=== PATIENT | female | born 1945 | race Caucasian/White ===

== ENCOUNTER 2017-02-14 07:04 | Inpatient (IN) | payer MEDICARE, OTHER, MEDICAID ==
[2017-02-14 08:13] LABS: PTT 26.7 SEC (22.9-36.1); Prothrombin Time 13.6 SEC (12.0-14.7)
[2017-02-14 08:27] LABS: ALT (SGPT) 55 U/L (8-55); AST (SGOT) 56 U/L (5-34); Alkaline Phosphatase 283 U/L (40-150); Anion Gap 16 mmol/L (10-20); BUN (Urea Nitrogen) 42 mg/dL (9.8-20.1); Bilirubin, Total 2.4 mg/dL (0.2-1.2); Calc. Creatinine Clearance 0 mL/min (70-130); Calcium 10.1 mg/dL (7.8-10.44); Carbon Dioxide 25 mmol/L (23-31); Chloride 102 mmol/L (98-107); Estimated GFR-MDRD 49; Magnesium 2.4 mg/dL (1.6-2.6); Protein, Total 7.4 g/dL (6.0-8.3)
[2017-02-14 08:30] LABS: #Lymphocytes 0.5 thou/uL (1.20-3.40); #Monocytes 0.4 thou/uL (0.11-0.59); %Basophils 0.2 % (0.0-1.0); %Eosinophils 0.3 % (0.0-10.0); %Monocytes 6.5 % (0.0-10.0); Hematocrit 58.8 % (36.0-47.0); Mean Platelet Volume 9.9 fL (7.4-10.4); Red Blood Cell (RBC) Count 5.96 mill/uL (4.20-5.40)
[2017-02-14 08:31] LABS: Troponin I 0.094 ng/mL (< 0.028)
--- NOTE | 2017-02-14 08:35 | RAD ---
PORTABLE CHEST: Date: 02/14/17 HISTORY: Dyspnea. No comparison available. IMPRESSION: Heart is mildly prominent. Mild elevation right hemidiaphragm. There is evidence of mild bibasilar at electasis and there is also evidence of small bilateral effusions. Mild vascular engorgement. A MediP ort catheter is in place with tip overlying the upper SVC. POS: [facility]
[2017-02-14] MEDS ORDERED: Heparin 1000 UNIT/NS 500ML(OR) 1,000 ML ONE (08:50)
[2017-02-14] MEDS ORDERED: Vancomycin HCl 500 MG VIAL ONE (09:10)
[2017-02-14] MEDS ORDERED: Levofloxacin 500 mg/D5W 100 ml Premix Bag ONE (09:14)
[2017-02-14] MEDS ORDERED: DOBUTamine 500 mg/250 ml 250 ML IVPB SCH (09:15)
[2017-02-14] MEDS ORDERED: Clindamycin/D5W 600 mg/50 ml Premix Bag ONE (09:30)
[2017-02-14] MEDS ORDERED: DOPamine 400 MG/D5W 250 ML 250 ML ONE (09:57)
--- NOTE | 2017-02-14 10:40 | CON ---
DATE OF CONSULTATION: 02/14/2017 REASON FOR CONSULTATION: Complete heart block. Ms. Miguel is a 71-year-old woman. She came to the hospital with weakness and fatigue and lack of energy. She also complained of increasing difficulty breathing and being unable to lay flat, she did not have chest pain or tightness. She has been feeling bad for about 3 days. The patient states that she otherwise has been in fair health. 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 She also has polymyositis for which she receives IgG therapy for this problem. She has otherwise had not had previous cardiac problems. MEDICATIONS AT HOME: Included subcutaneous heparin. Apparently the patient is not on any digoxin or beta blockers. ALLERGIES: None recorded. SOCIAL HISTORY: She has relatively poor physical health. There is no previous cardiac problems. REVIEW OF SYSTEMS: CONSTITUTIONAL: Positive for weakness, fatigue. VISION: No changes. HEARING: No changes. PULMONARY: No cough or wheezing. GASTROINTESTINAL: No nausea, vomiting, diarrhea. SKIN: No rashes. NEUROLOGIC: No unilateral weakness or numbness. PSYCHIATRIC: No unusual depression or anxiety. PHYSICAL EXAMINATION: GENERAL: This is an ill-appearing elderly woman. Her heart rates 29. She is in complete heart bloc k. VITAL SIGNS: Her blood pressure is 130 systolic. HEENT: Eyes; sclerae nonicteric. Mouth; mucous membranes moist. NECK: Supple, no lymphadenopathy. LUNGS: Clear, no wheezing, rales or rhonchi. CARDIAC: Extremely bradycardiac, no murmur, rub or gallop. ABDOMEN: Soft, nontender, no hepatosplenomegaly. EXTREMITIES: Extremities are cool. In fact, cold in her feet and below the knees. There is no club holly, cyanosis or edema. LABORATORY: Potassium is 5.1. EKG sinus rhythm, underlying, but there is complete heart block with ventricular escape rate. There is an incomplete right bundle branch block pattern. Left axis deviation, probably ventricular escape . ASSESSMENT: 1. Complete heart block. 2. History of polymyositis. 3. Weakness and fatigue related to complete heart block. PLAN: 1. Proceed with pacemaker insertion. Discussed risks of bleeding, infection, air in the lung, lead dislodgement. She understands and wishes to proceed. 2. Echocardiogram showed grossly normal left ventricular function, somewhat hyperdynamic the test is still being done at this point.
[2017-02-14] MEDS ORDERED: Ondansetron HCl/PF 4 MG/2 ML Vial ONE (11:53)
[2017-02-14] MEDS ORDERED: CEFAZOLIN/Water 2 GM/20 ML SYRINGE SLOW IVP SCH (12:15)
--- NOTE | 2017-02-14 12:21 | RAD ---
AP VIEW OF CHEST: Date: 02/14/17 INDICATION: Status post pacemaker placement. COMPARISON: Prior exam dated 02/14/17 at 0745 hours. FINDINGS: Left chest wall port is unchanged. There has been interval placement of a new right dual lead pacemak er. No pneumothorax is evident. Cardiomegaly persists. Elevation of right hemidiaphragm is similar. O sseous structures are unchanged. IMPRESSION: New right subclavian chest wall pacemaker without evidence of pneumothorax. POS: [facility]
[2017-02-14] MEDS ORDERED: Mag-Al 1200 mg/1200 mg/30 ML UDCUP PO PRN (12:31)
[2017-02-14] MEDS ORDERED: Eucerin (Mineral Oil/Petrolatum,White) 30 gm Jar TOP PRN (12:31)
[2017-02-14] MEDS ORDERED: Loratadine 10 MG TAB PO PRN (12:31)
[2017-02-14] MEDS ORDERED: Ondansetron ODT 4 MG TAB PO PRN (12:31)
[2017-02-14] MEDS ORDERED: Artificial Tears 18 DROP/0.9 ML EA EYE PRN (12:31)
[2017-02-14] MEDS ORDERED: Acetaminophen 325 MG TAB PO PRN (12:31)
[2017-02-14] MEDS ORDERED: Diabetic Tussin 200 MG/10 ML UDCUP PO PRN (12:31)
[2017-02-14] MEDS ORDERED: Chloraseptic Spray 180 ml Bottle PO PRN (12:31)
[2017-02-14] MEDS ORDERED: Senokot 8.6 MG TAB PO PRN (12:31)
[2017-02-14] MEDS ORDERED: Sodium Chloride 0.65% Nasal 44 ML BOT EA NARE PRN (12:31)
[2017-02-14] MEDS ORDERED: Acetaminophen/Codeine 30-300mg Tablet PO PRN (12:31)
[2017-02-14] MEDS ORDERED: Ondansetron HCl/PF 4 MG/2 ML Vial IVP PRN (12:31)
[2017-02-14] MEDS ORDERED: Loperamide HCl 2 MG CAP PO PRN (12:31)
[2017-02-14] MEDS ORDERED: Milk Of Magnesia 30 ML UDCUP PO PRN (12:31)
[2017-02-14] MEDS ORDERED: hydrALAZINE 20 MG/ML VIAL SLOW IVP PRN (12:31)
[2017-02-14 12:44] VITALS: BMI 24.5
[2017-02-14] MEDS ORDERED: traMADol HCl 50 MG TAB PO PRN (13:31)
--- NOTE | 2017-02-14 14:29 | RAD ---
AP VIEW OF CHEST: Date: 02/14/17 INDICATION: Status post cardiac device placement. COMPARISON: Prior exam dated 02/14/17 at 1117 hours. FINDINGS: The dual lead pacemaker and left subclavian chest port are unchanged. No pneumothorax is evident. No acute osseous abnormality is evident. IMPRESSION: No pneumothorax. POS: [facility]
--- NOTE | 2017-02-14 14:54 | HP ---
DATE OF SERVICE: 02/14/2017 PRIMARY CARE PHYSICIAN: Chase Perez M.D. at [facility]. REASON FOR ADMISSION: Third degree AV block and CHF exacerbation. HISTORY OF PRESENT ILLNESS: A 71-year-old female who has history of inflammatory myopathy. She is g etting IVIG every fourth week. She presented to the emergency room with acute onset of shortness of breath. The patient reports that last night she was having difficulty lying down flat position and s he was feeling extreme shortness of breath. She was also feeling more dizzy and lightheaded and her symptoms were getting worse and that is why she called paramedics. Paramedics did not take her to [facility] because her pulse was very low and that is why they decided to bring her to the emergen cy room at [facility]. This patient normally follows at [facility], but the patient was unstable and that is why they brought her to emergency room. The patient is following Dr. Everett at [facility]. The patie nt has underlying history of hyperdynamic circulation. The patient is not using oxygen therapy at [facility], but when she came to the emergency room, she was only saturating 90%. She was bradycardic and sh e was found with complete heart block. Cardiology evaluated this patient and after that, the patient was immediately taken to cardiac catheterization lab for emergent pacemaker placement. After emerge nt pacemaker placement, the patient was transferred to telemetry floor. The patient does have chronic steroid therapy for her inflammatory myopathy and she is taking IVIG si 1999. The patient also has MediPort. She denies any fever or chills. She denies any chest pain , palpitations, but she does report cough productive of white sputum. She denies any UTI symptoms. She denies any constipation or diarrhea. She was feeling vague chest tightness when she arrived to the emergency room. ALLERGIES: ATROPINE, LOMOTIL, PENICILLIN, STATIN. CURRENT HOME MEDICATIONS: Cholestyramine 1 packet p.o. daily, Lasix 40 mg p.o. b.i.d., Arava 10 mg p .o. daily, Bystolic 5 mg p.o. daily, prednisone 15 mg p.o. daily, Aldactone 25 mg p.o. daily, tramado l 50 mg q.6 hourly p.r.n. REVIEW OF SYSTEMS: The following complete review of systems was negative, unless otherwise mentioned in the HPI or below: Constitutional: Weight loss or gain, ability to conduct usual activities. Sk in: Rash, itching. Eyes: Double vision, pain. ENT/Mouth: Nose bleeding, neck stiffness, pain, te nderness. Cardiovascular: Palpitations, dyspnea on exertion, orthopnea. Respiratory: Shortness of breath, wheezing, cough, hemoptysis, fever or night sweats. Gastrointestinal: Poor appetite, abdom inal pain, heartburn, nausea, vomiting, constipation, or diarrhea. Genitourinary: Urgency, frequenc y, dysuria, nocturia. Musculoskeletal: Pain, swelling. Neurologic/Psychiatric: Anxiety, depressio n. Allergy/Immunologic: Skin rash, bleeding tendency. Please see my HPI for pertinent positives and negatives. All other review of systems reviewed and ne gative except as mentioned in the HPI. 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 PAST SURGICAL HISTORY: Appendicectomy, colonoscopy, cholecystectomy, MediPort placement, superficial lymph node biopsy, total abdominal hysterectomy and bilateral salpingo-oophorectomy. PAST PSYCHIATRIC HISTORY: Reviewed and negative. SOCIAL HISTORY: The patient lives in [facility]. 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 She denies any tobacco, alcohol or illicit drug abuse. FAMILY HISTORY: No strong family history of premature coronary artery disease, stroke or cancer. EMERGENCY ROOM COURSE: The patient was started on initially dobutamine drip. Subsequently that drip was discontinued. PHYSICAL EXAMINATION: VITAL SIGNS: On arrival, blood pressure 121/64, pulse 32, respiratory rate 38, temperature 97.5, sat uration 90% on room air, weight 90.7 kilograms. GENERAL: The patient is currently alert, awake, appears chronically ill, no obvious acute distress. HEENT: Normocephalic, atraumatic. Eyes: Pupils round, reactive to light. Extraocular muscles inta ct. ENT: Oropharynx within normal limits. Moist mucous membranes. No oral lesions. No pharyngeal erythema. No exudate. NECK: Supple. No obvious JVD noted. No carotid bruit. No meningeal signs of irritation. No lymph adenopathy. CARDIOVASCULAR: S1, S2, bradycardic, irregular. Soft systolic murmur noted over precordium. LUNGS: The patient has MediPort in place in left upper chest. Breath sounds are clear, but air entr y reduced both at basally. No obvious rales or end-expiratory wheezing heard. ABDOMEN: Soft, bowel sounds present, nontender, nondistended. No organomegaly, no mass, no suprapub ic tenderness. BACK: Unremarkable. No CVA tenderness. EXTREMITIES: Upper extremities, passive movements of all joints are normal. Lower extremities, bila teral edema noted +2. Good distal pulsation. SKIN: The patient does have multiple bruits of variable stage present entire body. PSYCHIATRIC: Normal affect. NEUROLOGIC: Nonfocal examination. The patient moves all 4 limbs. Plantar bilateral flexor. SIGNIFICANT LABS: EKG based on my review, third degree AV block, nonspecific ST-T changes, right bun dle branch block pattern and LVH. Chest x-ray based on my review, cardiomegaly and atelectasis, pulm onary vascular congestion noted. Repeat chest x-ray after pacemaker noted and without any pneumothor ax. CBC: WBC 6.0, hemoglobin 18.8, platelet 91 with a left shift. INR 1.0. D-dimer 2.11. BMP: S odium 138, potassium 5.1, chloride 102, carbon dioxide 25, anion gap 16, BUN 42, creatinine 1.10, glu cose 144, calcium 10.1, magnesium 2.4. LFT: Bilirubin 2.4, AST 56, ALT 55, alkaline phosphatase 283, albumin 3.4, CK-MB 2.8, troponin 0.094 . BNP 1511. ASSESSMENT AND PLAN: 1. Third degree atrioventricular block. Cardiology consulted and Dr. Bernstein already did pacemaker. P ost-procedure chest x-ray is normal. We will monitor on telemetry floor. 2. Acute on chronic diastolic congestive heart failure. We will obtain echocardiography. We will c ontinue with Lasix 20 mg IV b.i.d. We will continue Bystolic 5 mg p.o. daily, Aldactone 25 mg p.o. d aily. We will monitor daily weight, input and output chart, fluid restriction about 1500 mL per day. 3. Elevated troponin, likely due to demand ischemia. We will do 3 sets of cardiac enzymes to rule o ut acute coronary syndrome. 4. Chronic thrombocytopenia. We will avoid heparin products because of low platelet count. Only se quential compression device boots will be given for deep venous thrombosis prophylaxis. 5. Inflammatory myopathy. The patient is on IVIG monthly therapy. At this point, the patient is no t due for her IVIG therapy. We will continue leflunomide 10 mg p.o. daily, prednisone 15 mg p.o. taco ly. 6. Acute on chronic diastolic congestive heart failure. We will continue with Lasix 20 mg IV b.i.d. , fluid restriction. 7. Elevated troponin, likely due to demand ischemia. We will do 3 sets of cardiac enzymes as well. 8. Deep venous thrombosis prophylaxis, sequential compression device boots. 9. Gastrointestinal prophylaxis, Pepcid 20 mg p.o. b.i.d. 10. CODE STATUS: The patient is FULL CODE. The patient does not have any surrogate decision maker. Disposition plan based on clinical course. We are expecting the patient's stay in hospital more than 2 midnights. Plan of care discussed with the patient in detail.
[2017-02-14] MEDS: Furosemide 20 MG/2 ML VIAL SLOW IVP SCH (16:00)
[2017-02-14] MEDS: Famotidine 20 MG TAB PO SCH (22:04)
[2017-02-15 05:28] LABS: #Monocytes 0.7 thou/uL (0.11-0.59); #Neutrophils 3.9 thou/uL (1.40-6.50); %Basophils 0.3 % (0.0-1.0); %Eosinophils 0.6 % (0.0-10.0); %Lymphocytes 18.4 % (21.0-51.0); %Monocytes 11.7 % (0.0-10.0); Mean Platelet Volume 9.4 fL (7.4-10.4); Red Blood Cell (RBC) Count 5.45 mill/uL (4.20-5.40); White Blood Cell (WBC) Count 5.6 thou/uL (4.8-10.8)
[2017-02-15 05:46] LABS: ALT (SGPT) 35 U/L (8-55); AST (SGOT) 52 U/L (5-34); Alkaline Phosphatase 238 U/L (40-150); Anion Gap 10 mmol/L (10-20); BUN (Urea Nitrogen) 38 mg/dL (9.8-20.1); Bilirubin, Total 2.1 mg/dL (0.2-1.2); Calc. Creatinine Clearance 57 mL/min (70-130); Calcium 9.3 mg/dL (7.8-10.44); Carbon Dioxide 31 mmol/L (23-31); Chloride 103 mmol/L (98-107); Estimated GFR-MDRD 50; Globulin 3.4 g/dL (2.4-3.5); Protein, Total 6.3 g/dL (6.0-8.3); Troponin I 0.225 ng/mL (< 0.028)
[2017-02-15] MEDS: Furosemide 20 MG/2 ML VIAL SLOW IVP SCH (06:36)
--- NOTE | 2017-02-15 07:27 | CCL ---
CARDIOLOGY PROCEDURE NOTE: Date: 02/14/17 PROCEDURE: Pacemaker insertion. INDICATION FOR PROCEDURE: 71-year-old female with new onset third degree AV heart block with severe symptoms, with heart rates in the 20s. She was advised to undergo emergent pacemaker insertion. DESCRIPTION OF PROCEDURE: The patient was taken to the cardiac lab intern, prepped, and draped in sterile fashion, where she unde rwent the procedure without any difficulties or complications. She did have a Port-A-Cath in the left subclavian vein and we opted to put the pacemaker on the right side in the right subclavian area. Th is was performed without too much difficulty or complications, except when the first wire was passed the patient developed asystole requiring external pacing, but then after the right ventricular lead w as placed and the position became more stable and the heart rate is stable. Two leads were placed, o ne in the atrium and one in the ventricle. Both were screw-in leads. There were no other difficulties or complications encountered. Pacemaker was set with the upper rate at 130 and lower rate was set at 60. She was implanted with a dual chamber pacemaker from [employer], which is an MRI compatible devic e, an [employer]. Also, there was an antibiotic pouch placed around the pacemaker and the lead, and it wa s placed back into the pocket and the pocket was irrigated using copious amounts of antibiotic soluti on. The full dictated note can be found in the chart.
[2017-02-15] MEDS ORDERED: predniSONE 5 MG TAB PO SCH (09:00)
[2017-02-15] MEDS ORDERED: Non-Formulary Item 1 EACH (Cholestyramine (With Sugar) [Cholestyramine Packet] 1 PACKET) PO SCH (09:00)
[2017-02-15] MEDS ORDERED: PREDNISONE PO SCH (09:00)
[2017-02-15] MEDS ORDERED: Nebivolol HCl 5 MG TAB PO SCH (09:00)
[2017-02-15] MEDS ORDERED: Cholestyramine/Aspartame 4 gm Packet PO SCH (09:00)
[2017-02-15] MEDS ORDERED: Spironolactone 25 MG TAB PO SCH (09:00)
[2017-02-15] MEDS ORDERED: Leflunomide 10 mg Tablet PO SCH (09:00)
[2017-02-15] MEDS: Famotidine 20 MG TAB PO SCH (09:11)
--- NOTE | 2017-02-15 09:20 | PDOC.PN ---
- Subjective Encounter Start Date: 02/15/17 Encounter Start Time: 07:50 -: old records requested/rev Patient seen and examined. No new complaints. No overnight events - Objective Resuscitation Status: Resuscitation Status FULL:Full Resuscitation MAR Reviewed: Yes Vital Signs & Weight: Vital Signs (12 hours) Temp Pulse Resp BP Pulse Ox 02/15/17 07:50 97.9 F 68 18 95 02/15/17 04:00 97.9 F 68 18 107/66 92 L 02/14/17 23:40 98.9 F 66 18 109/69 96 Weight Weight 157 lb I&O: 02/14/17 02/15/17 02/16/17 06:59 06:59 06:59 Intake Total 840 Balance 840 Result Diagrams: 02/15/17 05:08 02/15/17 05:08 EKG Reviewed by me: Yes Phys Exam - Physical Examination Constitutional: NAD HEENT: PERRLA, moist MMs, sclera anicteric Neck: no JVD, supple Respiratory: no wheezing, no rales, no rhonchi Cardiovascular: RRR, no significant murmur, no rub Gastrointestinal: soft, non-tender, no distention, positive bowel sounds Musculoskeletal: no edema, pulses present Neurological: non-focal, normal sensation Psychiatric: normal affect, A&O x 3 Skin: normal turgor Dx/Plan (1) Acute CHF Code(s): I50.9 - HEART FAILURE, UNSPECIFIED Status: Acute Qualifiers: Congestive heart failure type: diastolic Qualified Code(s): I50.31 - Acute diastolic (congestive) heart failure (2) Demand ischemia of myocardium Code(s): I24.8 - OTHER FORMS OF ACUTE ISCHEMIC HEART DISEASE Status: Acute (3) Third degree AV block Code(s): I44.2 - ATRIOVENTRICULAR BLOCK, COMPLETE Status: Acute (4) Thrombocytopenia Code(s): D69.6 - THROMBOCYTOPENIA, UNSPECIFIED Status: Acute (5) 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 - OTH INFLAMMATORY AND IMMUNE MYOPATHIES, NEC Status: Chronic - Plan cont current plan of care * pacemaker site clean * now pt is euvolemic * medication reviewed as below * symptomatic treatment * if cardio ok, will discharge to home. Review of Systems - Review of Systems ENT: negative: Ear Pain, Ear Discharge, Nose Pain, Nose Discharge, Nose Congestion, Mouth Pain, Mouth Swelling, Throat Pain, Throat Swelling, Other Respiratory: negative: Cough, Dry, Shortness of Breath, Hemoptysis, SOB with Excertion, Pleuritic Pain, Sputum, Wheezing Cardiovascular: negative: Chest Pain, Palpitations, Orthopnea, Paroxysmal Noc. Dyspnea, Edema, Light Headedness, Other Gastrointestinal: negative: Nausea, Vomiting, Abdominal Pain, Diarrhea, Constipation, Melena, Hematochezia, Other Genitourinary: negative: Dysuria, Frequency, Incontinence, Hematuria, Retention , Other Musculoskeletal: negative: Neck Pain, Shoulder Pain, Arm Pain, Back Pain, Hand Pain, Leg Pain, Foot Pain, Other - Medications/Allergies Allergies/Adverse Reactions: Allergies Allergy/AdvReac Type Severity Reaction Status Date / Time atropine [From Lomotil] Allergy Verified 02/14/17 13:18 diphenoxylate [From Lomotil] Allergy Verified 02/14/17 13:18 Penicillins Allergy Verified 02/14/17 12:47 Jlnnefw-Goz-Ish Reductase Allergy Verified 02/14/17 13:18 Inhibitor Medications: Current Medications Acetaminophen (Tylenol) 650 mg PO Q4H PRN PRN Reason: Headache/Fever or Pain Acetaminophen/Codeine Phosphate (Tylenol #3) 1 tab PO Q4H PRN PRN Reason: Mild Pain (1-3) Al Hydroxide/Mg Hydroxide (Maalox) 30 ml PO Q6H PRN PRN Reason: Heartburn or Indigestion Artificial Tears (Tears Naturale) 0 drop EA EYE PRN PRN PRN Reason: Dry Eyes Cholestyramine Resin (Questran Light) 4 gm PO DAILY [facility] Last Admin: 02/15/17 09:17 Dose: Not Given Famotidine (Pepcid) 20 mg PO BID [facility] Last Admin: 02/15/17 09:11 Dose: 20 mg Furosemide (Lasix) 20 mg SLOW IVP 0600,1400 [facility] Last Admin: 02/15/17 06:36 Dose: 20 mg Guaifenesin (Robitussin Sf) 200 mg PO Q4H PRN PRN Reason: Cough Hydralazine HCl (Apresoline) 10 mg SLOW IVP Q4H PRN PRN Reason: Systolic BP > 180 Leflunomide (Arava) 10 mg PO DAILY [facility] Last Admin: 02/15/17 09:12 Dose: 10 mg Loperamide HCl (Imodium) 2 mg PO PRN PRN PRN Reason: Diarrhea/Loose Stools Loratadine (Claritin) 10 mg PO DAILYPRN PRN PRN Reason: Sinus Symptoms Magnesium Hydroxide (Milk Of Magnesium) 30 ml PO DAILYPRN PRN PRN Reason: Constipation Mineral Oil/White Petrolatum (Eucerin Cream) 0 gm TOP BIDPRN PRN PRN Reason: Dry Skin Nebivolol (Bystolic) 5 mg PO DAILY [facility] Last Admin: 02/15/17 09:11 Dose: Not Given Ondansetron HCl (Zofran Odt) 4 mg PO Q6H PRN PRN Reason: Nausea/Vomiting Ondansetron HCl (Zofran) 4 mg IVP Q6H PRN PRN Reason: Nausea/Vomiting Phenol (Chloraseptic [place] 180 Ml Bot) 0 ml PO PRN PRN PRN Reason: Sore Throat Prednisone (Prednisone) 15 mg PO DAILY [facility] Last Admin: 02/15/17 09:12 Dose: 15 mg Senna (Senokot) 2 tab PO HSPRN PRN PRN Reason: Constipation Sodium Chloride (Flush - Normal Saline) 10 ml IVF PRN PRN PRN Reason: Saline Flush Sodium Chloride ([place] Nasal [place] 0.65%) 0 ml EA NARE QIDPRN PRN PRN Reason: Nasal Congestion Spironolactone (Aldactone) 25 mg PO DAILY [facility] Last Admin: 02/15/17 09:12 Dose: 25 mg Tramadol HCl (Ultram) 50 mg PO Q6H PRN PRN Reason: Pain
[2017-02-15 10:58] VITALS: BP 117/74; TEMP 97.7
--- NOTE | 2017-02-15 11:37 | DIS ---
PRIMARY CARE PHYSICIAN: [facility], Dr. Shadia Perez DATE OF ADMISSION: 02/14/2017 DATE OF DISCHARGE: 02/15/2017 DISCHARGE DISPOSITION: Home. PRIMARY DISCHARGE DIAGNOSES: 1. Acute on chronic diastolic congestive heart failure, controlled. 2. Demand ischemia of myocardium. 3. Third degree AV block. 4. Status post pacemaker. 5. Thrombocytopenia. SECONDARY DISCHARGE DIAGNOSES: Inflammatory myopathy. PRIMARY PROCEDURE/OPERATION: Pacemaker placement. RADIOLOGICAL INVESTIGATION: Chest x-ray initially showed pulmonary vascular congestion. Chest x-ray repeated after pacemaker did not show any complication. Echocardiography showed EF 60-65%. TEST RESULTS PENDING ON DISCHARGE: None. ALLERGIES: ATROPINE, DIPHENOXYLATE, PENICILLIN and STATINS. DISCHARGE MEDICATIONS: Cholestyramine 1 packet daily, Lasix 40 mg p.o. b.i.d., Arava 10 mg p.o. luiz y, Bystolic 5 mg p.o. daily, prednisone 15 mg p.o. daily, Aldactone 25 mg p.o. daily, tramadol 50 mg q.6 hourly p.r.n. CONTRAINDICATIONS: None. CODE STATUS: FULL CODE. INPATIENT CONSULTANTS: Dr. Acosta was consulted for complete heart block and Dr. Bernstein did the pacema ker procedure. DISCHARGE PLAN: Post hospital, the patient will follow up with primary care physician in 1 week. patient will follow up with Cardiology as an outpatient basis. HOSPITAL COURSE: A 71-year-old female who was admitted yesterday by me. Please see my HPI for furth er details. The patient was having acute shortness of breath at home, she was feeling dizzy, lighthe aded, and she was found with complete heart block. Her pulse rate was so low that she was not able t o be taken to [facility], but she was brought to our emergency room. The patient was a lso saturating only 90%. She was suffering from complete heart block and acute on chronic diastolic heart failure. She was taken for emergent cardiac pacemaker procedure which she had on the day of ad mission. Patient has inflammatory myopathy and she is taking chronic steroid therapy through [facility]. This patient has chronic thrombocytopenia and patient is on chronic steroid therapy and that is w hy she has multiple skin bruises on her skin. This patient is completely bedbound and wheelchair dep endent. After pacemaker procedure chest x-ray was normal. While in hospital, we treated her with IV Lasix wi th significant improvement. The next day the patient was doing very well. She was on room air. She was up to her baseline. Her pacemaker site was clean and healthy. She had indeterminate troponin w hich was related with demand ischemia. Her renal function was stable. The patient is seen and examined at bedside today. Please see my progress note from today for furthe r details. We are arranging necessary transportation for her to go back to her home. Total time spent on discharge day 31 minutes.
== END 2017-02-15 11:55 | disposition home or self-care (01) | DRG 242 ==
LOC: ERS 07:04 → CCL 09:01 → 2NO 09:01 → ERS 09:01 → 2NO 10:05
PROVIDERS: ADMIT Internal Medicine Cardiovascular Disease; ATTEND Internal Medicine
PROC: 0JH606Z Insertion of Pacemaker, Dual Chamber into Chest Subcutaneous Tissue and Fascia, Open Approach (ICD-10-PCS; principal; 2017-02-14)
PROC: 02H63JZ Insertion of Pacemaker Lead into Right Atrium, Percutaneous Approach (ICD-10-PCS; 2017-02-14)
PROC: 02HK3JZ Insertion of Pacemaker Lead into Right Ventricle, Percutaneous Approach (ICD-10-PCS; 2017-02-14)
DX: I44.2 Atrioventricular block, complete (principal); I50.33 Acute on chronic diastolic (congestive) heart failure; I24.8 Other forms of acute ischemic heart disease; D69.6 Thrombocytopenia, unspecified; G72.9 Myopathy, unspecified; I11.0 Hypertensive heart disease with heart failure; Z86.010 Personal history of colon polyps; Z88.0 Allergy status to penicillin; Z88.8 Allergy status to other drugs, medicaments and biological substances; Z99.3 Dependence on wheelchair
CPT/HCPCS: 33208; 36005; 36415; 71010; 75820; 80053; 82553; 83735; 83880; 84484; 85025; 85379; 85610; 85730; 92953; 93005; 93010; 93306; 93798; 94760; C1785; C1898; J1250; J1265; J1644; J1940; J1956; J2405; J3370; J3490

== ENCOUNTER 2017-02-16 09:27 | Emergency (ER) | payer MEDICARE, OTHER ==
--- NOTE | 2017-02-16 10:32 | RAD ---
AP PELVIS: HISTORY: The patient fell yesterday, now with left leg pain. FINDINGS: Bones appear demineralized. Pelvic ring appears intact without evidence of fracture. Arthritic wolf ges of the lower lumbar spine are noted. IMPRESSION: No acute changes. If clinically indicated, further evaluation with CT may be helpful in evaluating f or acute subtle occult fractures. POS: [facility]
--- NOTE | 2017-02-16 11:03 | RAD ---
LEFT ANKLE 3 VIEWS: HISTORY: The patient fell yesterday now with leg pain. FINDINGS: The bones are demineralized. I do not appreciate any soft tissue swelling or joint effusion. There are vascular calcifications seen. There is what is felt to be either an accessory ossicle or an old avulsion injury to the medial malleolus. I do not see that this appears acute. Clinical correlation as to any pain in this region. In addition, on the oblique view there is some lucency at the tip of the distal fibula, but I do not see any definite fracture on the AP projection and I do not apprecia te definite soft tissue swelling in this region. IMPRESSION: No definite acute fracture as discussed above. POS: [facility]
--- NOTE | 2017-02-16 11:04 | RAD ---
LEFT FEMUR 2 VIEWS: HISTORY: Fall yesterday. FINDINGS: The bones are demineralized. I do not see any signs of fracture or dislocation. IMPRESSION: No evidence of fracture. POS: [facility]
--- NOTE | 2017-02-16 11:04 | RAD ---
LEFT KNEE 4 VIEWS: HISTORY: Knee pain status post fall. FINDINGS: There are no signs of fracture, dislocation, or joint effusion. The bones are demineralized. There are vascular calcifications. IMPRESSION: No evidence of fracture. POS: [facility]
[2017-02-16 11:35] LABS: #Eosinphils 0.1 thou/uL (0.0-0.7); #Lymphocytes 0.7 thou/uL (1.20-3.40); #Monocytes 0.7 thou/uL (0.11-0.59); #Neutrophils 6.4 thou/uL (1.40-6.50); %Basophils 0.5 % (0.0-1.0); %Eosinophils 0.7 % (0.0-10.0); %Lymphocytes 9.1 % (21.0-51.0); %Monocytes 8.8 % (0.0-10.0); Hematocrit 59.5 % (36.0-47.0); Mean Platelet Volume 9.8 fL (7.4-10.4); Red Blood Cell (RBC) Count 5.91 mill/uL (4.20-5.40); White Blood Cell (WBC) Count 7.9 thou/uL (4.8-10.8)
[2017-02-16 11:58] LABS: ALT (SGPT) 27 U/L (8-55); AST (SGOT) 52 U/L (5-34); Alkaline Phosphatase 247 U/L (40-150); Anion Gap 13 mmol/L (10-20); BUN (Urea Nitrogen) 32 mg/dL (9.8-20.1); Bilirubin, Total 3.3 mg/dL (0.2-1.2); CK (CPK) 138 U/L (29-168); Calc. Creatinine Clearance 0 mL/min (70-130); Calcium 9.5 mg/dL (7.8-10.44); Carbon Dioxide 28 mmol/L (23-31); Chloride 101 mmol/L (98-107); Estimated GFR-MDRD 68; Globulin 3.5 g/dL (2.4-3.5); Protein, Total 6.7 g/dL (6.0-8.3)
[2017-02-16 11:58] LABS: Bilirubin Small (Negative); Blood, Urine Negative (Negative); Glucose, Urine (Dipstick) Negative (Negative); Ketone, Urine Negative (Negative); Nitrite Negative (Negative); Protein, Urine (Dipstick) Negative (Neg-Trace); Urobilinogen 0.2 mg/dL (0.2-1.0)
[2017-02-16 12:02] LABS: Troponin I 0.161 ng/mL (< 0.028)
--- NOTE | 2017-02-23 13:35 | EKG ---
Test Reason : Blood Pressure : / mmHG Vent. Rate : 075 BPM Atrial Rate : 075 BPM P-R Int : 000 ms QRS Dur : 146 ms QT Int : 438 ms P-R-T Axes : -02 -84 063 degrees QTc Int : 489 ms Electronic ventricular pacemaker Confirmed by NENA GUALLPA, CLINT Velazquez ([id number]), editor in chief UMANG JASMINE ([id number]) on 02/23/2017 1:35:29 PM Referred By: Confirmed By:CLINT BARRETT MD
== END 2017-02-16 18:15 ==
LOC: ERS 09:27
DX: S70.02XA Contusion of left hip, initial encounter (principal); S70.12XA Contusion of left thigh, initial encounter; S90.02XA Contusion of left ankle, initial encounter; E03.9 Hypothyroidism, unspecified; E78.5 Hyperlipidemia, unspecified; I10 Essential (primary) hypertension; Z79.899 Other long term (current) drug therapy; W19.XXXA Unspecified fall, initial encounter
CPT/HCPCS: 36415; 72170; 80053; 81003; 82553; 84484; 85025; 87086; 93005

== ENCOUNTER 2017-02-26 16:46 | Inpatient (IN) | payer MEDICARE, OTHER, MEDICAID ==
[2017-02-26 17:44] LABS: #Lymphocytes 0.7 thou/uL (1.20-3.40); #Monocytes 0.6 thou/uL (0.11-0.59); #Neutrophils 6.1 thou/uL (1.40-6.50); %Basophils 0.1 % (0.0-1.0); %Eosinophils 0.7 % (0.0-10.0); %Lymphocytes 9.6 % (21.0-51.0); %Monocytes 7.7 % (0.0-10.0); Hemoglobin 17.9 g/dL (12.0-16.0); Mean Corpuscular HGB CONC 31.9 g/dL (32.0-36.0); Mean Corpuscular Hemoglobin 31.7 pg (27.0-31.0); Mean Corpuscular Volume 99.4 fl (81.0-99.0); Mean Platelet Volume 10.5 fL (7.4-10.4); Platelet Count 79 thou/uL (130-400); RBC Distribution Width 15.2 % (11.5-14.5); Red Blood Cell (RBC) Count 5.66 mill/uL (4.20-5.40); White Blood Cell (WBC) Count 7.4 thou/uL (4.8-10.8)
[2017-02-26] MEDS ORDERED: Albuterol Sulfate 2.5 mg/3 ml Neb ONE (17:50)
[2017-02-26] MEDS ORDERED: Water For Inject, Bacteriostat 30 ML ONE (18:22)
[2017-02-26] MEDS ORDERED: methylPREDNISolone Sod Succ/PF 125 MG/2 ML VIAL ONE (18:22)
[2017-02-26 19:48] LABS: Albumin 3.1 g/dL (3.4-4.8)
[2017-02-26 19:49] LABS: Chloride 95 mmol/L (98-107); Potassium 4.8 mmol/L (3.5-5.1); Sodium 133 mmol/L (136-145)
[2017-02-26 19:50] LABS: Calcium 9.9 mg/dL (7.8-10.44); Glucose 91 mg/dL (80-115)
[2017-02-26 19:51] LABS: Globulin 3.3 g/dL (2.4-3.5); Protein, Total 6.4 g/dL (6.0-8.3)
[2017-02-26 19:52] LABS: Anion Gap 16 mmol/L (10-20); Bilirubin, Total 2.4 mg/dL (0.2-1.2); Carbon Dioxide 27 mmol/L (23-31)
[2017-02-26 19:53] LABS: Alkaline Phosphatase 217 U/L (40-150)
[2017-02-26 19:54] LABS: Calc. Creatinine Clearance 0 mL/min (70-130); Estimated GFR-MDRD 76
[2017-02-26 19:55] LABS: AST (SGOT) 40 U/L (5-34); BUN (Urea Nitrogen) 37 mg/dL (9.8-20.1)
[2017-02-26 19:56] LABS: ALT (SGPT) 29 U/L (8-55)
--- NOTE | 2017-02-26 20:00 | RAD ---
TWO VIEWS CHEST 02/26/17 HISTORY: Shortness of breath, wheezing. Comparison made to a previous exam from 02/25/17. Two views chest demonstrate a dual lead intracardiac pacing device. A left subclavian Mediport cathet er is seen. Areas of patchy density seen in the left lung base compatible with areas of atelectasis or scar. Ther e is some elevation of the right hemidiaphragm unchanged since the previous day's exam. IMPRESSION: Stable two view chest, not significantly changed since the previous day's exam. No evidence of pneumo thorax seen. POS: [facility]
--- NOTE | 2017-02-26 21:49 | CT ---
CTA CHEST 02/26/17 HISTORY: Dyspnea. Contrast enhanced CTA of the chest is performed. 2D and 3D reconstructed images performed on an [employer] 3D workstation. Contrast enhanced CTA of the chest demonstrates coronary artery calcifications, especially in the LAD . Bilateral lower lobe areas of lung consolidation seen. This is compatible with bibasilar pneumonia. No evidence of filling defects seen in the pulmonary arteries to suggest pulmonary emboli. There is d iffuse aneurysmal dilatation of the ascending aorta. Diameter measuring up to 4 cm. A small mildly ca lcified cyst is present in the left hepatic lobe, not characterized on this present exam. IMPRESSION: 1. Bibasilar areas of lung consolidation. 2. Coronary artery calcifications. 3. Ascending aortic thoracic aneurysm. POS: [facility]
--- NOTE | 2017-02-26 21:50 | PDOC.EVN ---
Event Note - Event Note Event Note: [id number] 1. Pneumonia 2. S/P recent pacemaker placement 3. HTN 4. H/O polymyositis plan: see orders
[2017-02-26] MEDS ORDERED: Ondansetron HCl/PF 4 MG/2 ML Vial IVP PRN (22:32)
[2017-02-26] MEDS ORDERED: Sodium Chloride 0.9% 1,000 ML IV SCH (22:32)
[2017-02-26] MEDS ORDERED: Ondansetron ODT 4 MG TAB SL PRN (22:32)
[2017-02-26] MEDS ORDERED: Meropenem 1 GM in Sodium Chloride 0.9% 100 ML IVPB SCH (22:50)
[2017-02-26] MEDS ORDERED: Acetaminophen 325 MG TAB PO PRN (22:52)
[2017-02-26] MEDS ORDERED: Albuterol Sulfate 1.25 MG/3 ML NEB NEB PRN (22:53)
[2017-02-26] MEDS ORDERED: MEROPENEM 1 GM/50 ML 1 GM in Premix Bag 1 BAG IVPB SCH (23:15)
[2017-02-27 02:26] VITALS: BMI 25.4
[2017-02-27] MEDS: MEROPENEM 1 GM/50 ML 1 GM in Premix Bag 1 BAG IVPB SCH ×3 (05:14→23:25)
--- NOTE | 2017-02-27 07:15 | HP ---
DATE OF ADMISSION: 02/26/2017 CHIEF COMPLAINT: Cough, dyspnea, fever, fatigue. HISTORY OF PRESENT ILLNESS: Patient is a 71-year-old male recently got discharged from the hospital on 02/15/2017 after AICD placement and with diagnosis of acute on chronic diastolic heart failure and third-degree AV block. Patient was doing fine in the rehab and in the rehab, patient had started having fatigue, cough, and dyspnea for the past few days. Symptoms persisted today, patient started to become hypoxic. Patient was on like 87% on 3 liters, so patient was transferred here. Patient recently had a pacemaker placed last admission. Denies any chest pain. Denies any palpitations. Complains of cough, cough with some sputum production initially to his dry cough now. Complains of dyspnea on exertion, dyspnea on lying flat also. PAST MEDICAL HISTORY: Hypertension, polymyopathy, polymyositis, third-degree AV block. PAST SURGICAL HISTORY: Pacemaker placement. SOCIAL HISTORY: Denies smoking, denies alcohol, denies any illicit drugs. MEDICATIONS: Reviewed. REVIEW OF SYSTEMS: Constitutional: Positive for fatigue. Denies any chills. Eyes: Denies any vision problem. Ears: Denies hearing loss. Neck: Denies any neck pain. Cardiovascular system: Denies any chest pain. Denies any palpitations. Respiratory system: Positive for dyspnea. Positive for cough. Musculoskeletal: Chronic skin changes in bilateral lower extremity. Positive for edema. Integument: Positive for skin changes. Psychiatric: Denies any depression, anxiety. All other review of systems are reviewed and are negative. PHYSICAL EXAMINATION: CONSTITUTIONAL/VITAL SIGNS: At the time of H&P performed, blood pressure is 146 /87, heart rate 100, pulse ox 92% on 4 liters. GENERAL: Patient appears tired. Anterior nares patent. NECK: Supple, no JVD. CARDIOVASCULAR SYSTEM: S1, S2 present. Chest, right side pacemaker present. MUSCULOSKELETAL: Bilateral lower extremity: Positive for edema, chronic skin changes. INTEGUMENTARY: Bilateral lower extremity ecchymosis seen. Foot positive for pedal pulses present bilaterally. PSYCH: Mood appropriate at this time. GASTROINTESTINAL: Abdomen is soft, nontender, no guarding, no organomegaly, no masses felt. RESPIRATORY SYSTEM: Positive for crackles, positive for occasional rhonchi. Diminished at the bases. : No suprapubic or inguinal tenderness LABORATORY DATA: At the time of H&P performed, sodium 133, potassium 4.8, chloride 95, CO2 of 27, BUN 37, creatinine 0.75. Lactic acid 3, total bilirubin 2.4. D-dimer 3.04. White count 7.4, hemoglobin 7.9, platelet count 79. ASSESSMENT AND PLAN: The patient is 71-year-old male, 1. Pneumonia: CT chest positive for bilateral infiltrates. Plan to start patient on broad-spectrum antibiotics. Plan to monitor the patient closely. Plan to start patient on breathing treatments and oxygen via nasal cannula. 2. Status post recent pacemaker placement, stable at this time. 3. Monitor heart rate. Place patient on telemetry. 4. History of hypertension, monitor blood pressures, continue home blood pressure meds. 5. History of polymyositis monitor closely. 6. Lactic acidosis. Monitor serial lactic acid levels. Case was discussed in detail with the patient. YUN
[2017-02-27] MEDS ORDERED: Spironolactone 25 MG TAB PO SCH (09:00)
[2017-02-27] MEDS ORDERED: Furosemide 40 MG TAB PO SCH (09:00)
[2017-02-27] MEDS ORDERED: Nebivolol HCl 5 MG TAB PO SCH (09:00)
[2017-02-27] MEDS ORDERED: Cholestyramine/Aspartame 4 gm Packet PO SCH (09:00)
[2017-02-27] MEDS: Enoxaparin Sodium 40 MG/0.4 ML SYRINGE SC SCH (09:35)
[2017-02-27] MEDS: Vancomycin HCl 1.5 GM in Sodium Chloride 0.9% 250 ML 300 ML IVPB SCH ×2 (11:27→21:48)
--- NOTE | 2017-02-27 11:34 | ULT ---
RIGHT UPPER QUADRANT ABDOMINAL ULTRASOUND: HISTORY: Sepsis and elevated LFTs. TECHNIQUE: Multiplanar love-scale and color Doppler images were obtained in a right upper quadrant abdominal ult rasound. FINDINGS: The liver demonstrates increased echogenicity without focal lesions or intrahepatic ductal dilatation . The gallbladder has been removed. The common bile duct is normal, measuring 5 mm. The pancreas could not be visualized. The right kidney is normal in echogenicity without hydronephro sis or calculus and measures 9.3 cm in length. IMPRESSION: Fatty liver. POS: [facility]
--- NOTE | 2017-02-27 11:43 | CON ---
DATE OF CONSULTATION: 02/27/2017 CONSULTING PHYSICIAN: Dr. Ham from the Hospitalist group. REASON FOR CONSULTATION: Pneumonia. HISTORY OF PRESENT ILLNESS: Ms. Peraza is a wonderfully pleasant 71-year-old female who was admitte d last night from the [facility] where she had developed hypoxemia with exertion. She was diagnosed with pneumonia based on the presence of bibasilar infiltrates on CT scan. She has had some dry coug h and shortness of breath. PAST MEDICAL HISTORY: 1. Polymyositis for the last 20 years. 2. Hypertension. 3. Recent diagnosis of third degree AV block requiring permanent pacemaker placement. PAST SURGICAL HISTORY: Pacemaker placement. SOCIAL HISTORY: Nonsmoker, does not consume alcohol, does not use illicit drugs. MEDICATIONS PRIOR TO ADMISSION: Prednisone 50 mg nightly, Aldactone 25 mg daily, Lasix 40 mg daily, Arava 10 mg daily, Cholestyramine 1 packet daily, Bystolic 5 mg daily, tramadol 50 mg every 6 hours a s needed. 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 Lives in [facility]. REVIEW OF SYSTEMS: Remarkable for leg weakness. Occasional shoulder weakness. PHYSICAL EXAMINATION: VITAL SIGNS: Temperature 97.6, pulse 64, respirations 18, O2 sat 94% on 3 liters, blood pressure 110 /59. GENERAL: She is awake and alert and in no distress. HEENT: Unremarkable. NECK: No JVD. LUNGS: She has inspiratory crackles in both bases. CARDIOVASCULAR: S1, S2, slightly tachycardic. ABDOMEN: Soft, nontender. EXTREMITIES: Edematous from her knees downward. Last echocardiogram obtained about 2 weeks ago demonstrated an EF of 60-65%. LABORATORY: White blood cell count 7.4, hematocrit 56.2, platelet count 79 with 82% neutrophils. So dium 133, potassium 4.8, chloride 95, CO2 27, BUN 37, creatinine 0.7, glucose 91. ASSESSMENT: 1. Bibasilar pneumonia best viewed on her CT scan. 2. Acute hypoxic respiratory failure. 3. Polymyositis. PLAN: 1. Extend her IV antibiotic coverage to include Levaquin, meropenem and vancomycin. 2. Stop IV fluids and decrease the dose of Lasix. 3. Restart steroids since she is chronically on steroids. 4. I will follow with you.
[2017-02-27] MEDS: traMADol HCl 50 MG TAB PO PRN ×2 (12:51→21:33)
--- NOTE | 2017-02-27 13:30 | PDOC.PN ---
- Subjective Encounter Start Date: 02/27/17 Encounter Start Time: 13:27 Subjective: feels better but still easily winded.no chest pain. -: no abdominal pain/nausea/vomiting - Objective MAR Reviewed: Yes Vital Signs & Weight: Vital Signs (12 hours) Temp Pulse Resp BP Pulse Ox 02/27/17 12:27 97.3 F L 71 18 118/77 94 L 02/27/17 10:56 94 22 H 94 L 02/27/17 08:00 97.6 F 64 18 110/59 L 94 L 02/27/17 06:44 103 H 24 H 95 02/27/17 04:00 97.8 F 103 H 20 118/72 95 02/27/17 03:33 109 H 24 H 94 L Weight Weight 153 lb 0.013 oz I&O: 02/26/17 02/27/17 02/28/17 06:59 06:59 06:59 Intake Total 650 Balance 650 Result Diagrams: 02/26/17 17:29 02/26/17 19:29 Additional Labs: Microbiology 02/26/17 18:00 Nasopharyngeal swab Influenza Types A,B Direct EIA - Final 02/27/17 05:22 Sputum Respiratory Culture - Preliminary 02/26/17 20:28 Venous blood - Right Arm Blood Culture - Preliminary Specimen has been received and culture in progress. No Growth to date. 02/26/17 20:28 Venous blood - Left Foot Blood Culture - Preliminary Specimen has been received and culture in progress. No Growth to date. Laboratory Tests 02/14/17 02/14/17 02/15/17 07:57 07:57 05:08 Hgb Plt Count 91 L D-Dimer Lactic Acid Total Bilirubin 2.4 H 2.1 H Alkaline Phosphatase 283 H 238 H B-Natriuretic Peptide 02/15/17 02/16/17 02/16/17 05:08 11:07 11:07 Hgb Plt Count 63 L 64 L D-Dimer Lactic Acid Total Bilirubin 3.3 H Alkaline Phosphatase 247 H B-Natriuretic Peptide 02/17/17 02/21/17 02/25/17 12:00 04:00 15:22 Hgb 17.2 H Plt Count 59 L 51 L 66 L D-Dimer Lactic Acid Total Bilirubin Alkaline Phosphatase B-Natriuretic Peptide 02/26/17 02/26/17 02/26/17 17:29 17:29 17:29 Hgb 17.9 H Plt Count 79 L D-Dimer Lactic Acid 3.0 H Total Bilirubin Alkaline Phosphatase B-Natriuretic Peptide 97.0 02/26/17 02/26/17 02/26/17 18:46 19:29 23:30 Hgb Plt Count D-Dimer 3.04 H Lactic Acid 2.0 Total Bilirubin 2.4 H Alkaline Phosphatase 217 H B-Natriuretic Peptide Radiology Reviewed by me: Yes (RUQ US-fatty liver) Phys Exam - Physical Examination Constitutional: NAD easily winded HEENT: PERRLA, moist MMs, sclera anicteric, oral pharynx no lesions Neck: no nodes, no JVD, supple, full ROM Respiratory: no wheezing, no rales, no rhonchi, clear to auscultation bilateral decrfeased at bases Cardiovascular: RRR, no significant murmur Gastrointestinal: soft, non-tender, no distention, positive bowel sounds Musculoskeletal: no edema, pulses present Neurological: non-focal, normal sensation, moves all 4 limbs Psychiatric: normal affect, A&O x 3 Dx/Plan (1) Acute respiratory failure Code(s): J96.00 - ACUTE RESPIRATORY FAILURE, UNSP W HYPOXIA OR HYPERCAPNIA Status: Acute Qualifiers: Respiratory failure complication: hypoxia Qualified Code(s): J96.01 - Acute respiratory failure with hypoxia (2) Sepsis Code(s): A41.9 - SEPSIS, UNSPECIFIED ORGANISM Status: Acute (3) HCAP (healthcare-associated pneumonia) Code(s): J18.9 - PNEUMONIA, UNSPECIFIED ORGANISM Status: Acute (4) Transaminitis Code(s): R74.0 - NONSPEC ELEV OF LEVELS OF TRANSAMNS & LACTIC ACID DEHYDRGNSE Status: Chronic (5) Pacemaker Code(s): Z95.0 - PRESENCE OF CARDIAC PACEMAKER Status: Acute (6) 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 - OTH INFLAMMATORY AND IMMUNE MYOPATHIES, NEC Status: Chronic (7) Thrombocytopenia Code(s): D69.6 - THROMBOCYTOPENIA, UNSPECIFIED Status: Acute (8) AAA (abdominal aortic aneurysm) Code(s): I71.4 - ABDOMINAL AORTIC ANEURYSM, WITHOUT RUPTURE Status: Chronic Qualifiers: Presence of rupture: without rupture Qualified Code(s): I71.4 - Abdominal aortic aneurysm, without rupture - Plan continue antibiotics, PT/OT, social welfare clerk, respiratory therapy, incentive spirometry, out of bed/ambulate, DVT proph w/SCDs Empiric coverage broadened.PCCM following. appreciate input. -: cont supportive care. IV steroids,nebs,O2 prn. -: have PPM interrogated. -: if symptomas do not improve,will check [email or web address] Pericard effusion on CT ches -: cont home meds as below. monitor lytes etc * . Review of Systems - Review of Systems Constitutional: Weakness, Malaise Respiratory: Cough, Shortness of Breath Cardiovascular: negative: Chest Pain, Palpitations, Orthopnea, Paroxysmal Noc. Dyspnea, Edema, Light Headedness, Other Gastrointestinal: negative: Nausea, Vomiting, Abdominal Pain, Diarrhea, Constipation, Melena, Hematochezia, Other Genitourinary: negative: Dysuria, Frequency, Incontinence, Hematuria, Retention , Other Musculoskeletal: negative: Neck Pain, Shoulder Pain, Arm Pain, Back Pain, Hand Pain, Leg Pain, Foot Pain, Other Neurological: negative: Weakness, Numbness, Incoordination, Change in Speech, Confusion, Seizures, Other - Medications/Allergies Allergies/Adverse Reactions: Allergies Allergy/AdvReac Type Severity Reaction Status Date / Time atropine [From Lomotil] Allergy Verified 02/14/17 13:18 diphenoxylate [From Lomotil] Allergy Verified 02/14/17 13:18 Penicillins Allergy Verified 02/14/17 12:47 [id number] Reductase Allergy Verified 02/14/17 13:18 Inhibitor Medications: Current Medications Acetaminophen (Tylenol) 650 mg PO Q4H PRN PRN Reason: Headache/Fever or Mild Pain Albuterol Sulfate (Albuterol Sulfate) 1.25 mg NEB Q2H PRN PRN Reason: Wheezing Stop: 03/05/17 22:54 Albuterol/Ipratropium (Duoneb) 3 ml IPPB [id number] [facility] Last Admin: 02/27/17 10:56 Dose: 3 ml Cholestyramine Resin (Questran Light) 1 gm PO DAILY [facility] Last Admin: 02/27/17 11:02 Dose: 1 gm Enoxaparin Sodium (Lovenox) 40 mg SC 0900 [facility] Last Admin: 02/27/17 09:35 Dose: Not Given Furosemide (Lasix) 40 mg PO DAILY-AC [facility] Vancomycin HCl 1.5 gm/ Sodium (Chloride) 300 mls @ 200 mls/hr IVPB 0900,2100 [facility] Last Admin: 02/27/17 11:27 Dose: 300 mls Meropenem 1 gm/ Device 50 mls @ 100 mls/hr IVPB Q8HR [facility] Last Admin: 02/27/17 05:14 Dose: 50 mls Levofloxacin 500 mg/ Device 100 mls @ 100 mls/hr IVPB Q24HR [facility] Last Admin: 02/27/17 10:59 Dose: 100 mls Leflunomide (Arava) 10 mg PO HS [facility] Methylprednisolone Sodium Succinate (Solu-Medrol) 20 mg IVP Q6HR [facility] Last Admin: 02/27/17 11:03 Dose: 20 mg Nebivolol (Bystolic) 5 mg PO DAILY [facility] Last Admin: 02/27/17 11:02 Dose: Not Given Sodium Chloride (Flush - Normal Saline) 10 ml IVF Q12HR [facility] Sodium Chloride (Flush - Normal Saline) 10 ml IVF PRN PRN PRN Reason: Saline Flush Spironolactone (Aldactone) 25 mg PO DAILY [facility] Last Admin: 02/27/17 10:44 Dose: Not Given Tramadol HCl (Ultram) 50 mg PO Q6H PRN PRN Reason: Pain 4-6 Last Admin: 02/27/17 12:51 Dose: 50 mg
[2017-02-27] MEDS ORDERED: Leflunomide 10 mg Tablet PO SCH (21:00)
[2017-02-27] MEDS ORDERED: predniSONE 5 MG TAB PO SCH ×2 (21:00→22:00)
[2017-02-27] MEDS: Leflunomide 10 mg Tablet PO SCH (21:32)
[2017-02-27] MEDS ORDERED: predniSONE 1 MG TAB PO SCH (22:00)
[2017-02-27] MEDS: traMADol HCl 50 MG TAB PO SCH (23:29)
[2017-02-28 05:00] LABS: #Lymphocytes 0.4 thou/uL (1.20-3.40); #Monocytes 0.4 thou/uL (0.11-0.59); #Neutrophils 6.4 thou/uL (1.40-6.50); %Eosinophils 0.2 % (0.0-10.0); %Lymphocytes 4.9 % (21.0-51.0); %Monocytes 5.3 % (0.0-10.0); %Neutrophils 89.7 % (42.0-75.0); Hemoglobin 15.8 g/dL (12.0-16.0); Mean Corpuscular HGB CONC 32.3 g/dL (32.0-36.0); Mean Corpuscular Hemoglobin 32.2 pg (27.0-31.0); Mean Corpuscular Volume 99.6 fl (81.0-99.0); Mean Platelet Volume 8.7 fL (7.4-10.4); Platelet Count 75 thou/uL (130-400); RBC Distribution Width 14.8 % (11.5-14.5); Red Blood Cell (RBC) Count 4.91 mill/uL (4.20-5.40); White Blood Cell (WBC) Count 7.2 thou/uL (4.8-10.8)
[2017-02-28 05:02] LABS: Anion Gap 12 mmol/L (10-20); BUN (Urea Nitrogen) 32 mg/dL (9.8-20.1); Calc. Creatinine Clearance 75 mL/min (70-130); Calcium 9.9 mg/dL (7.8-10.44); Carbon Dioxide 27 mmol/L (23-31); Chloride 101 mmol/L (98-107); Estimated GFR-MDRD 75; Glucose 209 mg/dL (80-115); Potassium 4.9 mmol/L (3.5-5.1); Sodium 135 mmol/L (136-145)
[2017-02-28] MEDS: MEROPENEM 1 GM/50 ML 1 GM in Premix Bag 1 BAG IVPB SCH ×3 (06:06→21:39)
[2017-02-28] MEDS: traMADol HCl 50 MG TAB PO SCH ×4 (06:10→23:23)
[2017-02-28] MEDS ORDERED: Furosemide 40 MG TAB PO SCH (07:30)
[2017-02-28] MEDS: Nebivolol HCl 5 MG TAB PO SCH (08:30)
[2017-02-28] MEDS: Enoxaparin Sodium 40 MG/0.4 ML SYRINGE SC SCH (08:30)
[2017-02-28 09:08] LABS: Vancomycin, Trough 36.7 ug/mL
[2017-02-28] MEDS ORDERED: Vancomycin HCl 1.5 GM in Sodium Chloride 0.9% 250 ML 300 ML IVPB SCH (09:25)
[2017-02-28] MEDS: Vancomycin HCl 1.5 GM in Sodium Chloride 0.9% 250 ML 300 ML IVPB SCH (09:30)
[2017-02-28] MEDS ORDERED: VANCOMYCIN IVPB PRN (09:43)
--- NOTE | 2017-02-28 11:51 | PRG ---
DATE OF SERVICE: 02/28/2017 SUBJECTIVE: She feels better. She is having less cough and congestion. PHYSICAL EXAMINATION: VITAL SIGNS: Temperature is 97.2, pulse 72, respirations 24, O2 sat 96% on 3 liters, blood pressure 106/69. HEENT: Unremarkable. NECK: No JVD. LUNGS: Few crackles in the bases. CARDIAC: S1 and S2 regular. ABDOMEN: Soft. EXTREMITIES: Edematous throughout. LABORATORY DATA: White blood cell count 7.2, hematocrit 48.9, platelet count 75. Sodium 135, potass ium 4.9, chloride 101, CO2 of 27, BUN 32, creatinine 0.7, and glucose 209. ASSESSMENT: 1. Pneumonia. 2. Acute hypoxic respiratory failure. 3. Polymyositis. PLAN: Continue IV Levaquin, meropenem, and vancomycin. The vancomycin can be stopped if her 48 hour cultures are negative. She is continuing IV methylprednisolone for the time being.
[2017-02-28] MEDS: Cholestyramine/Aspartame 4 gm Packet PO SCH (12:32)
--- NOTE | 2017-02-28 13:32 | PDOC.PN ---
- Subjective Encounter Start Date: 02/28/17 Encounter Start Time: 13:31 Subjective: feels better than yesterday but still very weak - Objective MAR Reviewed: Yes Vital Signs & Weight: Vital Signs (12 hours) Temp Pulse Resp BP Pulse Ox 02/28/17 11:36 74 22 H 95 02/28/17 08:00 97.7 F 74 18 111/72 95 02/28/17 06:48 72 24 H 96 02/28/17 04:00 97.2 F L 70 20 106/69 96 02/28/17 01:59 74 22 H Weight Admit Weight 153 lb Weight 153 lb I&O: 02/27/17 02/28/17 03/01/17 06:59 06:59 06:59 Intake Total 650 Balance 650 Result Diagrams: 02/28/17 03:51 02/28/17 03:51 Additional Labs: Laboratory Tests 02/26/17 02/26/17 02/26/17 17:29 17:29 23:30 Plt Count 79 L Lactic Acid 3.0 H 2.0 02/28/17 03:51 Plt Count 75 L Lactic Acid Phys Exam - Physical Examination Constitutional: NAD HEENT: PERRLA, moist MMs, sclera anicteric, oral pharynx no lesions Neck: no nodes, no JVD, supple, full ROM Respiratory: no wheezing, clear to auscultation bilateral decreased at bases Cardiovascular: RRR, no significant murmur Gastrointestinal: soft, non-tender, no distention, positive bowel sounds Musculoskeletal: no edema, pulses present Neurological: non-focal, normal sensation, moves all 4 limbs Psychiatric: normal affect, A&O x 3 Skin: no rash Dx/Plan (1) Sepsis Code(s): A41.9 - SEPSIS, UNSPECIFIED ORGANISM Status: Acute (2) HCAP (healthcare-associated pneumonia) Code(s): J18.9 - PNEUMONIA, UNSPECIFIED ORGANISM Status: Acute (3) Transaminitis Code(s): R74.0 - NONSPEC ELEV OF LEVELS OF TRANSAMNS & LACTIC ACID DEHYDRGNSE Status: Chronic (4) Pacemaker Code(s): Z95.0 - PRESENCE OF CARDIAC PACEMAKER Status: Acute (5) 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 - OTH INFLAMMATORY AND IMMUNE MYOPATHIES, NEC Status: Chronic (6) Thrombocytopenia Code(s): D69.6 - THROMBOCYTOPENIA, UNSPECIFIED Status: Acute (7) AAA (abdominal aortic aneurysm) Code(s): I71.4 - ABDOMINAL AORTIC ANEURYSM, WITHOUT RUPTURE Status: Chronic Qualifiers: Presence of rupture: without rupture Qualified Code(s): I71.4 - Abdominal aortic aneurysm, without rupture (8) Acute respiratory failure Code(s): J96.00 - ACUTE RESPIRATORY FAILURE, UNSP W HYPOXIA OR HYPERCAPNIA Status: Resolved Qualifiers: Respiratory failure complication: hypoxia Qualified Code(s): J96.01 - Acute respiratory failure with hypoxia - Plan PT/OT, respiratory therapy, incentive spirometry, out of bed/ambulate, DVT proph w/SCDs Cont braoad spectrum IV ABx for HCAP.nebs,O2 prn.supportive care -: contSolumedrol. -: PT,OT eval only.Pt does not want to participate. -: Follow Cx. AM labs * . Review of Systems - Review of Systems Constitutional: Weakness, Malaise. negative: Fever, Chills, Sweats, Other ENT: negative: Ear Pain, Ear Discharge, Nose Pain, Nose Discharge, Nose Congestion, Mouth Pain, Mouth Swelling, Throat Pain, Throat Swelling, Other Respiratory: Cough, Shortness of Breath, SOB with Excertion Cardiovascular: negative: Chest Pain, Palpitations, Orthopnea, Paroxysmal Noc. Dyspnea, Edema, Light Headedness, Other Gastrointestinal: negative: Nausea, Vomiting, Abdominal Pain, Diarrhea, Constipation, Melena, Hematochezia, Other Genitourinary: negative: Dysuria, Frequency, Incontinence, Hematuria, Retention , Other Musculoskeletal: negative: Neck Pain, Shoulder Pain, Arm Pain, Back Pain, Hand Pain, Leg Pain, Foot Pain, Other Neurological: negative: Weakness, Numbness, Incoordination, Change in Speech, Confusion, Seizures, Other - Medications/Allergies Allergies/Adverse Reactions: Allergies Allergy/AdvReac Type Severity Reaction Status Date / Time atropine [From Lomotil] Allergy Verified 02/14/17 13:18 diphenoxylate [From Lomotil] Allergy Verified 02/14/17 13:18 Penicillins Allergy Verified 02/14/17 12:47 Aapabwp-[id number]-Pzd Reductase Allergy Verified 02/14/17 13:18 Inhibitor Medications: Current Medications Acetaminophen (Tylenol) 650 mg PO Q4H PRN PRN Reason: Headache/Fever or Mild Pain Albuterol Sulfate (Albuterol Sulfate) 1.25 mg NEB Q2H PRN PRN Reason: Wheezing Stop: 03/05/17 22:54 Albuterol/Ipratropium (Duoneb) 3 ml IPPB [id number] Last Admin: 02/28/17 11:36 Dose: 3 ml Cholestyramine Resin (Questran Light) 4 gm PO 1000 [facility] Last Admin: 02/28/17 12:32 Dose: 4 gm Enoxaparin Sodium (Lovenox) 40 mg SC 0900 [facility] Last Admin: 02/28/17 08:30 Dose: Not Given Furosemide (Lasix) 20 mg PO 1800 [facility] Meropenem 1 gm/ Device 50 mls @ 100 mls/hr IVPB Q8HR [facility] Last Admin: 02/28/17 06:06 Dose: 50 mls Levofloxacin 500 mg/ Device 100 mls @ 100 mls/hr IVPB Q24HR [facility] Last Admin: 02/28/17 08:31 Dose: 100 mls Vancomycin HCl 750 mg/ Sodium (Chloride) 250 mls @ 250 mls/hr IVPB [facility] Leflunomide (Arava) 10 mg PO 2000 [facility] Last Admin: 02/27/17 21:32 Dose: 10 mg Methylprednisolone Sodium Succinate (Solu-Medrol) 20 mg IVP Q6HR [facility] Last Admin: 02/28/17 12:54 Dose: 20 mg Miscellaneous Medication (Pharmacy To Dose) 1 each IVPB PRN PRN PRN Reason: Pharmacy to dose Nebivolol (Bystolic) 5 mg PO 0800 [facility] Last Admin: 02/28/17 08:30 Dose: Not Given Sodium Chloride (Flush - Normal Saline) 10 ml IVF Q12HR [facility] Last Admin: 02/28/17 08:31 Dose: 10 ml Spironolactone (Aldactone) 25 mg PO 1800 [facility] Tramadol HCl (Ultram) 50 mg PO Q6H PRN PRN Reason: Pain 4-6 Last Admin: 02/27/17 21:33 Dose: 50 mg Tramadol HCl (Ultram) 50 mg PO Q6HR [facility] Last Admin: 02/28/17 12:58 Dose: 50 mg
[2017-02-28] MEDS: Furosemide 20 MG TAB PO SCH (18:43)
[2017-02-28] MEDS: Spironolactone 25 MG TAB PO SCH (18:44)
[2017-02-28 20:39] LABS: Vancomycin, Random 28.4 ug/mL (See Comment)
[2017-02-28] MEDS ORDERED: Vancomycin HCl 750 MG in Sodium Chloride 0.9% 250 ML 250 ML IVPB SCH (21:00)
[2017-02-28] MEDS ORDERED: predniSONE 5 MG TAB PO SCH (21:00)
[2017-02-28] MEDS ORDERED: predniSONE 1 MG TAB PO SCH (21:00)
[2017-02-28] MEDS: Leflunomide 10 mg Tablet PO SCH (21:38)
[2017-03-01 04:39] LABS: #Lymphocytes 0.4 thou/uL (1.20-3.40); #Monocytes 0.5 thou/uL (0.11-0.59); #Neutrophils 7.1 thou/uL (1.40-6.50); %Eosinophils 0.2 % (0.0-10.0); %Lymphocytes 4.4 % (21.0-51.0); %Monocytes 5.8 % (0.0-10.0); %Neutrophils 89.6 % (42.0-75.0); Mean Corpuscular HGB CONC 32.6 g/dL (32.0-36.0); Mean Corpuscular Hemoglobin 32.5 pg (27.0-31.0); Mean Corpuscular Volume 99.5 fl (81.0-99.0); Mean Platelet Volume 8.2 fL (7.4-10.4); Platelet Count 92 thou/uL (130-400); RBC Distribution Width 14.8 % (11.5-14.5); Red Blood Cell (RBC) Count 4.93 mill/uL (4.20-5.40); White Blood Cell (WBC) Count 7.9 thou/uL (4.8-10.8)
[2017-03-01 04:47] LABS: Anion Gap 15 mmol/L (10-20); BUN (Urea Nitrogen) 35 mg/dL (9.8-20.1); Calc. Creatinine Clearance 74 mL/min (70-130); Calcium 10.1 mg/dL (7.8-10.44); Carbon Dioxide 24 mmol/L (23-31); Chloride 100 mmol/L (98-107); Estimated GFR-MDRD 73; Glucose 174 mg/dL (80-115); Potassium 5.3 mmol/L (3.5-5.1); Sodium 134 mmol/L (136-145)
[2017-03-01] MEDS: traMADol HCl 50 MG TAB PO SCH ×5 (06:15→23:36)
[2017-03-01] MEDS: MEROPENEM 1 GM/50 ML 1 GM in Premix Bag 1 BAG IVPB SCH (06:19)
--- NOTE | 2017-03-01 09:12 | PDOC.PN ---
- Subjective Encounter Start Date: 03/01/17 Encounter Start Time: 09:10 Patient seen and examined. No new complaints. No overnight events. feels better. still weak. mild sob reported. - Objective MAR Reviewed: Yes Vital Signs & Weight: Vital Signs (12 hours) Temp Pulse Resp BP Pulse Ox 03/01/17 07:34 97.3 F L 93 16 118/76 93 L 03/01/17 06:20 60 24 H 92 L 03/01/17 02:06 66 20 93 L 03/01/17 01:43 93 L 02/28/17 23:57 98.0 F 67 24 H 126/67 94 L 02/28/17 23:15 56 L 20 93 L Weight Admit Weight 153 lb Weight 153 lb I&O: 02/28/17 03/01/17 03/02/17 06:59 06:59 06:59 Intake Total 1550 Balance 1550 Result Diagrams: 03/01/17 04:00 03/01/17 04:00 Phys Exam - Physical Examination Constitutional: NAD HEENT: moist MMs, sclera anicteric Neck: full ROM Respiratory: no rales, wheezing present Cardiovascular: no significant murmur Gastrointestinal: soft Musculoskeletal: no edema Neurological: non-focal Psychiatric: normal affect, A&O x 3 Skin: no rash Dx/Plan (1) HCAP (healthcare-associated pneumonia) Code(s): J18.9 - PNEUMONIA, UNSPECIFIED ORGANISM Status: Acute (2) Pacemaker Code(s): Z95.0 - PRESENCE OF CARDIAC PACEMAKER Status: Acute (3) Sepsis Code(s): A41.9 - SEPSIS, UNSPECIFIED ORGANISM Status: Acute (4) Acute respiratory failure Code(s): J96.00 - ACUTE RESPIRATORY FAILURE, UNSP W HYPOXIA OR HYPERCAPNIA Status: Resolved Qualifiers: Respiratory failure complication: hypoxia Qualified Code(s): J96.01 - Acute respiratory failure with hypoxia - Plan cont current plan of care * . f/u with pulmonology. dc vanc today. AM labs. PT as tolerated. DC planning.
[2017-03-01] MEDS: Cholestyramine/Aspartame 4 gm Packet PO SCH (09:25)
[2017-03-01] MEDS: predniSONE 20 MG TAB PO SCH (09:25)
[2017-03-01] MEDS: Nebivolol HCl 5 MG TAB PO SCH (09:27)
[2017-03-01] MEDS: Enoxaparin Sodium 40 MG/0.4 ML SYRINGE SC SCH (09:27)
--- NOTE | 2017-03-01 11:48 | PRG ---
DATE OF SERVICE: 03/01/2017 SUBJECTIVE: She is doing okay from a respiratory standpoint, but she is upset that she has been wolf ged to a thickened liquid diet. PHYSICAL EXAMINATION: VITAL SIGNS: On exam, temperature is 98.0, pulse 60, respirations 24, O2 sat 92% on 3 liters. HEENT: Unremarkable. NECK: No JVD. CHEST: Fairly clear. CARDIAC: S1 and S2 regular. ABDOMEN: Soft. EXTREMITIES: No edema. LABORATORY DATA: White blood cell count 7.9, hematocrit 49, platelet count 92. Sodium 134, potassiu m 5.3, chloride 100, CO2 of 24, BUN 35, creatinine 0.7, glucose 174. Cultures demonstrate no growth to date. ASSESSMENT: 1. Pneumonitis, which has improved. 2. Some difficulty swallowing. 3. Polymyositis. RECOMMENDATIONS: We would stop the vancomycin, stop the meropenem, and switch to oral Levaquin. She is likely ready to go back to rehab.
[2017-03-01] MEDS: Furosemide 20 MG TAB PO SCH (17:26)
[2017-03-01] MEDS: Spironolactone 25 MG TAB PO SCH (17:26)
[2017-03-01] MEDS: Leflunomide 10 mg Tablet PO SCH (19:47)
[2017-03-02 04:43] LABS: #Lymphocytes 0.3 thou/uL (1.20-3.40); #Monocytes 0.7 thou/uL (0.11-0.59); #Neutrophils 5.8 thou/uL (1.40-6.50); %Basophils 0.5 % (0.0-1.0); %Eosinophils 0.2 % (0.0-10.0); %Lymphocytes 3.7 % (21.0-51.0); %Monocytes 10.4 % (0.0-10.0); %Neutrophils 85.2 % (42.0-75.0); Hemoglobin 15.9 g/dL (12.0-16.0); Mean Corpuscular HGB CONC 32.5 g/dL (32.0-36.0); Mean Corpuscular Hemoglobin 32.6 pg (27.0-31.0); Mean Platelet Volume 9.1 fL (7.4-10.4); Platelet Count 71 thou/uL (130-400); RBC Distribution Width 14.9 % (11.5-14.5); Red Blood Cell (RBC) Count 4.87 mill/uL (4.20-5.40); White Blood Cell (WBC) Count 6.8 thou/uL (4.8-10.8)
[2017-03-02 04:45] LABS: Anion Gap 14 mmol/L (10-20); BUN (Urea Nitrogen) 36 mg/dL (9.8-20.1); Calc. Creatinine Clearance 76 mL/min (70-130); Calcium 10.4 mg/dL (7.8-10.44); Carbon Dioxide 28 mmol/L (23-31); Chloride 98 mmol/L (98-107); Estimated GFR-MDRD 76; Glucose 143 mg/dL (80-115); Potassium 5.1 mmol/L (3.5-5.1); Sodium 135 mmol/L (136-145)
[2017-03-02] MEDS: traMADol HCl 50 MG TAB PO SCH ×4 (05:36→23:35)
[2017-03-02] MEDS: predniSONE 20 MG TAB PO SCH (08:13)
[2017-03-02] MEDS: Enoxaparin Sodium 40 MG/0.4 ML SYRINGE SC SCH (08:14)
[2017-03-02] MEDS: Nebivolol HCl 5 MG TAB PO SCH (08:17)
[2017-03-02] MEDS: Cholestyramine/Aspartame 4 gm Packet PO SCH (10:04)
--- NOTE | 2017-03-02 11:28 | PRG ---
DATE OF SERVICE: 03/02/2017 SUBJECTIVE: Joselin Peraza this morning, she says she is better. She is less short of breath. OBJECTIVE: VITAL SIGNS: Temperature 97, sats are 94% on 3 L, respirations 20, blood pressure 110/65. CHEST: Chest reveals decreased breath sounds without any wheezing. CARDIAC: Normal S1, S2. LABORATORY DATA: White count 6000, H&H stable. Electrolytes are normal. IMPRESSION: Bilateral pneumonia, chronic obstructive pulmonary disease exacerbation. She looks like she is stable enough to be discharged home in next 24-48 hours. Continue PT.
--- NOTE | 2017-03-02 12:43 | PDOC.PN ---
- Subjective Encounter Start Date: 03/02/17 Encounter Start Time: 12:42 Ms. Peraza was seen today in follow-up of Pneumonia. She says she is breathing better. She has a little cough after her neb treatments. - Objective MAR Reviewed: Yes Vital Signs & Weight: Vital Signs (12 hours) Temp Pulse Resp BP Pulse Ox 03/02/17 12:19 69 18 131/82 93 L 03/02/17 10:31 68 20 94 L 03/02/17 08:22 97.8 F 68 20 101/65 93 L 03/02/17 08:00 97.8 F 68 20 03/02/17 07:08 69 20 94 L 03/02/17 03:52 93 L 03/02/17 01:56 76 18 93 L Weight Admit Weight 153 lb Weight 153 lb I&O: 03/01/17 03/02/17 03/03/17 06:59 06:59 06:59 Intake Total 1550 Balance 1550 Result Diagrams: 03/02/17 03:27 03/02/17 03:27 Phys Exam - Physical Examination HEENT: PERRLA Respiratory: wheezing present + expiratory wheeze, no rales noted Cardiovascular: RRR, no significant murmur, no rub Gastrointestinal: soft, non-tender, positive bowel sounds Musculoskeletal: edema present + 2-3+ pitting edema of the feet, and ankles, dark discoloration Dx/Plan (1) Acute respiratory failure Code(s): J96.00 - ACUTE RESPIRATORY FAILURE, UNSP W HYPOXIA OR HYPERCAPNIA Status: Resolved Qualifiers: Respiratory failure complication: hypoxia Qualified Code(s): J96.01 - Acute respiratory failure with hypoxia (2) 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 - OTH INFLAMMATORY AND IMMUNE MYOPATHIES, NEC Status: Chronic (3) Pacemaker Code(s): Z95.0 - PRESENCE OF CARDIAC PACEMAKER Status: Chronic (4) Third degree AV block Code(s): I44.2 - ATRIOVENTRICULAR BLOCK, COMPLETE Status: Chronic - Plan * Healthcare Associated Pneumonia- with acute respiratory failure due this the antibiotics have been changed to Levaquin * She is also on oral steroids now * Inflammatory Myopathy- chronic and slightly deconditioned- the plan is for her to return to inpatient Rehab- She will receive her scheduled IVIG on Saturday or , and then can return to rehab * 3rd Degree AV- block- she is s/p pacemaker - stable.
[2017-03-02] MEDS: Spironolactone 25 MG TAB PO SCH (17:59)
[2017-03-02] MEDS: Furosemide 20 MG TAB PO SCH (17:59)
[2017-03-02] MEDS: Leflunomide 10 mg Tablet PO SCH (19:58)
[2017-03-03] MEDS: traMADol HCl 50 MG TAB PO SCH ×4 (06:18→23:56)
[2017-03-03] MEDS: Enoxaparin Sodium 40 MG/0.4 ML SYRINGE SC SCH (08:35)
[2017-03-03] MEDS: Nebivolol HCl 5 MG TAB PO SCH (08:35)
[2017-03-03] MEDS: predniSONE 20 MG TAB PO SCH (08:36)
[2017-03-03] MEDS: Cholestyramine/Aspartame 4 gm Packet PO SCH (09:23)
--- NOTE | 2017-03-03 13:33 | PDOC.PN ---
- Subjective Encounter Start Date: 03/03/17 Encounter Start Time: 13:31 Ms. Peraza was seen today in follow-up of HAP. She does not have any complaints. She denies feeling short of breath, only has occasional cough. - Objective MAR Reviewed: Yes Vital Signs & Weight: Vital Signs (12 hours) Temp Pulse Resp BP Pulse Ox 03/03/17 11:10 65 20 94 L 03/03/17 08:00 98.9 F 65 24 H 117/72 93 L 03/03/17 06:56 66 20 97 03/03/17 03:36 93 L 03/03/17 03:32 97.4 F L 66 16 134/79 97 Weight Admit Weight 153 lb Weight 153 lb I&O: 03/02/17 03/03/17 03/04/17 06:59 06:59 06:59 Intake Total 1150 Balance 1150 Result Diagrams: 03/02/17 03:27 03/02/17 03:27 Phys Exam - Physical Examination HEENT: PERRLA + rhonchi bilaterally, no rales Cardiovascular: RRR, no significant murmur, no rub Gastrointestinal: soft, non-tender, positive bowel sounds Musculoskeletal: edema present 2-3+ pitting edema- bilaterally Neurological: non-focal Dx/Plan (1) Acute respiratory failure Code(s): J96.00 - ACUTE RESPIRATORY FAILURE, UNSP W HYPOXIA OR HYPERCAPNIA Status: Resolved Qualifiers: Respiratory failure complication: hypoxia Qualified Code(s): J96.01 - Acute respiratory failure with hypoxia (2) 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
--- NOTE | 2017-03-03 14:03 | PRG ---
DATE OF SERVICE: 03/03/2017 SUBJECTIVE: Ms. Peraza is doing better morning, no problem with dysphagia, no shortness of breath. OBJECTIVE: VITAL SIGNS: Sats are 98% on 3 liters, temperature 98, respiration 24, blood pressure 117/72. CHEST: No wheezing and no crackles. CARDIAC: Normal S1 and S2. No gallops. IMPRESSION: Pneumonia, abnormal LFTs, respiratory failure, improved. PLAN: Continue p.o. antibiotics, prednisone, hopefully home in the next several days.
[2017-03-03] MEDS: Spironolactone 25 MG TAB PO SCH (17:43)
[2017-03-03] MEDS: Furosemide 20 MG TAB PO SCH (17:43)
[2017-03-03] MEDS: Leflunomide 10 mg Tablet PO SCH (20:06)
[2017-03-04] MEDS: traMADol HCl 50 MG TAB PO SCH ×3 (06:16→18:12)
--- NOTE | 2017-03-04 08:18 | PRG ---
DATE OF SERVICE: 03/04/2017 She feels okay, had no complaints. PHYSICAL EXAMINATION: VITAL SIGNS: Temperature 97.4, pulse 67, respirations 27, O2 sat 95%, blood pressure 121/75. HEENT: Unremarkable. NECK: No JVD. CHEST: Clear with distant breath sounds. CARDIAC: S1 and S2 regular. ABDOMEN: Soft. EXTREMITIES: Edematous. ASSESSMENT: 1. Improved healthcare associated pneumonia 2. History of third degree atrioventricular block. 3. History of inflammatory myopathy. PLAN: She is stable to go back to rehab. She probably needs to get her IVIG at the location that [facility] normally gets it due to the severe cost of this medication. At this point, there is not much furth er to offer. She is on oral antibiotics which should be given for a total of 14 days between IV and p.o., steroids be tapered back to her baseline 15 mg nightly over the next 2 weeks.
[2017-03-04] MEDS: Nebivolol HCl 5 MG TAB PO SCH (08:34)
[2017-03-04] MEDS: predniSONE 20 MG TAB PO SCH (08:37)
[2017-03-04] MEDS: Enoxaparin Sodium 40 MG/0.4 ML SYRINGE SC SCH (08:37)
[2017-03-04] MEDS: Cholestyramine/Aspartame 4 gm Packet PO SCH (10:38)
--- NOTE | 2017-03-04 15:16 | PDOC.PN ---
- Subjective Encounter Start Date: 03/04/17 Encounter Start Time: 15:13 Ms. Peraza was seen today in follow-up. She says she is feeling" great". She denies chest pain or difficulty breathing. she denies chest pain. - Objective MAR Reviewed: Yes Vital Signs & Weight: Vital Signs (12 hours) Temp Pulse Resp BP Pulse Ox 03/04/17 12:00 97.5 F L 74 18 128/81 96 03/04/17 10:09 62 18 95 03/04/17 08:01 97.4 F L 67 20 121/75 95 03/04/17 06:53 58 L 18 94 L Weight Admit Weight 153 lb Weight 153 lb I&O: 03/03/17 03/04/17 03/05/17 06:59 06:59 06:59 Intake Total 1150 1200 Balance 1150 1200 Result Diagrams: 03/02/17 03:27 03/02/17 03:27 Phys Exam - Physical Examination HEENT: PERRLA Respiratory: no wheezing, no rales, no rhonchi, clear to auscultation bilateral Cardiovascular: RRR, no significant murmur, no rub Gastrointestinal: soft, non-tender, positive bowel sounds Musculoskeletal: edema present 1+ edema bilaterally bruising Neurological: non-focal Dx/Plan (1) Acute respiratory failure Code(s): J96.00 - ACUTE RESPIRATORY FAILURE, UNSP W HYPOXIA OR HYPERCAPNIA Status: Resolved Qualifiers: Respiratory failure complication: hypoxia Qualified Code(s): J96.01 - Acute respiratory failure with hypoxia (2) 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 She says she was taken off this medication after the pacemaker was placed * With regards to Lovenox- She has extensive bruising in both lower extremities , and her platelet count is below 100- will continue off Lovenox for now * Deconditioning- continue PT/OT * She is being re-screened for In-patient Rehab.
[2017-03-04] MEDS: Spironolactone 25 MG TAB PO SCH (18:12)
[2017-03-04] MEDS: Furosemide 20 MG TAB PO SCH (18:12)
[2017-03-04] MEDS: Leflunomide 10 mg Tablet PO SCH (19:35)
[2017-03-05] MEDS: traMADol HCl 50 MG TAB PO SCH ×4 (00:04→17:54)
--- NOTE | 2017-03-05 07:16 | PDOC.PN ---
- Subjective Encounter Start Date: 03/05/17 Encounter Start Time: 07:15 Ms. Peraza was seen today in follow-up of Healthcare associated pneumonia. She had some back and side pain last night that she relates to sciatica. She says she is breathing ok. - Objective MAR Reviewed: Yes Vital Signs & Weight: Vital Signs (12 hours) Temp Pulse Resp BP Pulse Ox 03/05/17 06:09 64 16 95 03/05/17 01:20 67 18 96 03/04/17 22:55 95 03/04/17 22:54 95 03/04/17 20:00 97.9 F 63 20 111/74 95 Weight Admit Weight 153 lb Weight 153 lb I&O: 03/04/17 03/05/17 03/06/17 06:59 06:59 06:59 Intake Total 1200 550 Balance 1200 550 Result Diagrams: 03/02/17 03:27 03/02/17 03:27 Phys Exam - Physical Examination HEENT: PERRLA + rhonchi bilaterally no rales Cardiovascular: RRR, no significant murmur, no rub Gastrointestinal: soft, non-tender, positive bowel sounds Musculoskeletal: no edema Dx/Plan (1) Acute respiratory failure Code(s): J96.00 - ACUTE RESPIRATORY FAILURE, UNSP W HYPOXIA OR HYPERCAPNIA Status: Resolved Qualifiers: Respiratory failure complication: hypoxia Qualified Code(s): J96.01 - Acute respiratory failure with hypoxia (2) 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 [facility] ([phone]) and she was scheduled to receive the IVIG today. They have faxed over the orders, and will administer it here * HTN- Blood pressure is stable * Deconditioning- continue PT/OT
[2017-03-05] MEDS: Nebivolol HCl 5 MG TAB PO SCH (08:16)
[2017-03-05] MEDS: Enoxaparin Sodium 40 MG/0.4 ML SYRINGE SC SCH (08:16)
[2017-03-05] MEDS: predniSONE 20 MG TAB PO SCH (08:17)
[2017-03-05] MEDS: Cholestyramine/Aspartame 4 gm Packet PO SCH (08:17)
--- NOTE | 2017-03-05 09:29 | PRG ---
DATE OF SERVICE: 03/05/2017 The patient is breathing well, has no complaints in that regard. PHYSICAL EXAMINATION: VITAL SIGNS: Temperature 98.5, pulse 70, respiration rate 24, O2 sat 96%, blood pressure 104/62. HEENT: Unremarkable. NECK: No adenopathy, no JVD. LUNGS: Clear, without wheezing or rhonchi. CARDIAC: S1 and S2 regular. ABDOMEN: Soft. EXTREMITIES: No edema. LABORATORY DATA: No labs were obtained today. ASSESSMENT: 1. Post-pneumonia - clinically stable. 2. History of inflammatory myopathy. RECOMMENDATIONS: Should probably get her IVIG outpatient if at all possible. No further pulmonary c oncerns. I will sign off. Please recall if further assistance needed.
[2017-03-05] MEDS: OCTAGAM 10% 40 GM in Premix Bag 1 BAG IVPB SCH (10:19)
[2017-03-05] MEDS: Famotidine/PF 20 mg/2ml Vial SLOW IVP SCH ×2 (13:09→18:06)
[2017-03-05] MEDS: Furosemide 20 MG TAB PO SCH (17:54)
[2017-03-05] MEDS: Spironolactone 25 MG TAB PO SCH (17:54)
[2017-03-05] MEDS: Leflunomide 10 mg Tablet PO SCH (19:56)
[2017-03-06] MEDS: traMADol HCl 50 MG TAB PO SCH ×4 (00:17→18:09)
[2017-03-06] MEDS: Nebivolol HCl 5 MG TAB PO SCH (07:39)
[2017-03-06] MEDS ORDERED: Famotidine/PF 20 mg/2ml Vial SLOW IVP SCH (08:00)
[2017-03-06] MEDS: OCTAGAM 10% 40 GM in Premix Bag 1 BAG IVPB SCH (09:21)
[2017-03-06] MEDS: predniSONE 20 MG TAB PO SCH (09:28)
[2017-03-06] MEDS: Enoxaparin Sodium 40 MG/0.4 ML SYRINGE SC SCH (09:29)
[2017-03-06] MEDS: Cholestyramine/Aspartame 4 gm Packet PO SCH (10:31)
--- NOTE | 2017-03-06 15:42 | PDOC.PN ---
- Subjective Encounter Start Date: 03/06/17 Encounter Start Time: 15:39 Ms. Peraza was seen today in follow-up. She does not have any complaints, and says she feels great. - Objective MAR Reviewed: Yes Vital Signs & Weight: Vital Signs (12 hours) Temp Pulse Resp BP Pulse Ox 03/06/17 13:30 68 17 94 L 03/06/17 12:55 98.2 F 68 20 118/73 93 L 03/06/17 09:30 63 18 95 03/06/17 08:00 98.3 F 63 18 136/75 95 03/06/17 06:23 71 18 94 L 03/06/17 04:14 98 Weight Admit Weight 153 lb Weight 153 lb I&O: 03/05/17 03/06/17 03/07/17 06:59 06:59 06:59 Intake Total 550 1360 Balance 550 1360 Result Diagrams: 03/02/17 03:27 03/02/17 03:27 Phys Exam - Physical Examination HEENT: PERRLA Respiratory: no wheezing Cardiovascular: RRR, no significant murmur, no rub Gastrointestinal: soft, non-tender, positive bowel sounds Musculoskeletal: no edema Dx/Plan (1) Acute respiratory failure Code(s): J96.00 - ACUTE RESPIRATORY FAILURE, UNSP W HYPOXIA OR HYPERCAPNIA Status: Resolved Qualifiers: Respiratory failure complication: hypoxia Qualified Code(s): J96.01 - Acute respiratory failure with hypoxia (2) 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
[2017-03-06] MEDS: Furosemide 20 MG TAB PO SCH (18:09)
[2017-03-06] MEDS: Spironolactone 25 MG TAB PO SCH (18:09)
[2017-03-06] MEDS: Leflunomide 10 mg Tablet PO SCH (20:05)
[2017-03-07] MEDS: traMADol HCl 50 MG TAB PO SCH ×3 (01:08→12:24)
[2017-03-07 07:43] VITALS: BP 143/87; TEMP 97.7
[2017-03-07] MEDS: Nebivolol HCl 5 MG TAB PO SCH (08:27)
[2017-03-07] MEDS: Enoxaparin Sodium 40 MG/0.4 ML SYRINGE SC SCH (08:27)
[2017-03-07] MEDS: predniSONE 20 MG TAB PO SCH (08:27)
[2017-03-07] MEDS: Cholestyramine/Aspartame 4 gm Packet PO SCH (08:27)
--- NOTE | 2017-03-07 11:29 | PDOC.PN ---
- Subjective Encounter Start Date: 03/07/17 Encounter Start Time: 11:28 Ms. Burgess was seen today in follow-up of HAP. She is feeling better. She says she is recovering some of the strength in her swallowing. she denies any trouble with breathing. - Objective MAR Reviewed: Yes Vital Signs & Weight: Vital Signs (12 hours) Temp Pulse Resp BP Pulse Ox 03/07/17 09:50 69 18 95 03/07/17 08:00 97.7 F 69 18 96 03/07/17 07:42 97.7 F 64 20 143/87 H 96 03/07/17 05:59 67 18 93 L 03/07/17 03:42 96 03/07/17 02:02 72 16 93 L Weight Admit Weight 153 lb Weight 153 lb I&O: 03/06/17 03/07/17 03/08/17 06:59 06:59 06:59 Intake Total 1360 Balance 1360 Result Diagrams: 03/02/17 03:27 03/02/17 03:27 Phys Exam - Physical Examination HEENT: PERRLA Respiratory: no wheezing + rhonchi bilaterally Cardiovascular: RRR, no significant murmur Gastrointestinal: soft, non-tender, positive bowel sounds Musculoskeletal: no edema Dx/Plan (1) Acute respiratory failure Code(s): J96.00 - ACUTE RESPIRATORY FAILURE, UNSP W HYPOXIA OR HYPERCAPNIA Status: Resolved Qualifiers: Respiratory failure complication: hypoxia Qualified Code(s): J96.01 - Acute respiratory failure with hypoxia (2) 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
--- NOTE | 2017-03-07 13:42 | DIS ---
DATE OF ADMISSION: 02/26/2017 DATE OF DISCHARGE: 03/07/2017 DISCHARGE DISPOSITION: To the inpatient rehabilitation. DISCHARGE DIAGNOSES: 1. Healthcare associated pneumonia. 2. Inflammatory myositis. 3. Complete heart block. 4. Status post pacemaker placement. 5. Severe deconditioning. 6. Chronic thrombocytopenia. DISCHARGE MEDICATIONS: Tramadol 50 mg q.6h. as needed, Aldactone 25 mg at bedtime, Bystolic 5 mg taco ly, Levaquin 500 mg daily until 03/12/2017, Arava 10 mg at bedtime, Lasix 40 mg at bedtime and Choles tyramine 1 packet daily. PROCEDURES DONE DURING ADMISSION: The patient had a CT angiogram of the chest showing bibasilar area s of lung consolidation, coronary artery calcifications and ascending aortic thoracic aneurysm. CODE STATUS: Full code. ALLERGIES: ATROPINE, DIPHENOXYLATE, PENICILLINS and STATINS. HOSPITAL COURSE: Ms. Peraza is a pleasant 71-year-old female that was recently discharged from our facility for an AICD and pacemaker placement for third-degree AV block. She was discharged to rehab. There she began having cough and fever and was evaluated and found to have a healthcare associated pneumonia. She was at readmitted to our facility, started on broad spectrum IV antibiotics. She was seen by Pulmonary Medicine as well. She improved over the course of the next several days. She has a history of an inflammatory myopathy and received her treatment of IGIG here in the hospital and th en was transferred back to inpatient rehab.
--- NOTE | 2017-03-13 13:49 | PQF ---
KOMAL COLLIER TONI MD [phone] [id number] CLINICAL DOCUMENTATION CLARIFICATION FORM: POST DISCHARGE Please clarify if documented "Sepsis" on progress notes 02/27, 02/28, and 03/01 , can be further specified and/or ruled out. ER; "She met 1 SIRS criteria with increased respiration." "Impression: Pneumonia , hypoxia" H&P; "Pneumonia: plan to start broad spectrum antibiotics. Plan to start breathing treatments and oxygen via nasal cannula. PULMED; "Pneumonia, Acute hypoxic respiratory failure." DC; "Recent AICD placement discharged to Rehab. There she began having cough and fever and was found to have a Healthcare Associated Pneumonia. Readmitted to our facility, started on broad spectrum IV antibiotics". LAB; WBC 7.4,/ 7.2,/ 7.9,/ 6.8. ; Lactic Acid; 02/26/17- 3.0 / 2.0 Please exercise your independent, professional judgment in responding to the clarification form. Clinical indicators are provided on the bottom of this form for your review. Thank you. Please check appropriate box(s): [ ] Sepsis Ruled-out [ X ] Sepsis due to: (Pna, UTI, gangrenous gall bladder, etc.) ___Pneumonia- Healthcare associated Due to: [ ] Device (please specify) [ ] Implant [ ] Graft [ ] Infusion [ ] SIRS due to non-infectious process (please specify etiology) [ ] with organ dysfunction [ ] without organ dysfunction [ ] Severe sepsis with acute organ dysfunction of: (Examples: respiratory failure, encephalopathy, acute kidney failure, other) [ ] Localized infection without sepsis [ ] Other diagnosis [ ] Unable to determine In addition, please specify: Present on Admission (POA): [ X ] Yes [ ] No [ ] Unable to determine CLINICAL INDICATORS - SIGNS / SYMPTOMS / LABS Respiratory rate >22/min, Hypoxemia, Metabolic acidosis Lactic Acid >2mmol/L, thrombocytopenia-plts <100k RISK FACTORS Infection/Bacteremia Pneumonia Recent AICD placement Surgery / surgical instrumentation Chronic steroid use Immunosuppression Advancing Age TREATMENTS: Initiation Sepsis Protocol Daily CBC Blood/sputum/wound cultures IV antibiotics - broad spectrum IV Fluids (This form is maintained as a part of the permanent medical record) 2014 [employer], [employer]. All Rights Reserved PERLA [email or web address] [phone] MTDD
--- NOTE | 2017-03-15 13:27 | EKG ---
Test Reason : SOB Blood Pressure : / mmHG Vent. Rate : 080 BPM Atrial Rate : 058 BPM P-R Int : 000 ms QRS Dur : 050 ms QT Int : 298 ms P-R-T Axes : 000 070 236 degrees QTc Int : 343 ms Demand pacemaker; interpretation is based on intrinsic rhythm Accelerated Junctional rhythm with frequent , and consecutive Premature ventricular complexes and Fus ion complexes Low voltage QRS Septal infarct , age undetermined Possible Lateral infarct , age undetermined Abnormal ECG Confirmed by JACKIE JAUREGUI ([id number]), script editor UMANG JASMINE ([id number]) on 03/15/2017 1:26:24 PM Referred By: Confirmed By:JACKIE JAUREGUI
== END 2017-03-07 15:06 | DRG 871 ==
LOC: ERS 16:46 → T4-A 20:30
PROVIDERS: ADMIT Internal Medicine; ATTEND Internal Medicine
DX: A41.9 Sepsis, unspecified organism (principal); J18.9 Pneumonia, unspecified organism; J96.01 Acute respiratory failure with hypoxia; E87.2 Acidosis; D69.6 Thrombocytopenia, unspecified; G72.49 Other inflammatory and immune myopathies, not elsewhere classified; I11.0 Hypertensive heart disease with heart failure; I50.32 Chronic diastolic (congestive) heart failure; M33.20 Polymyositis, organ involvement unspecified; Y95 Nosocomial condition; I71.2 Thoracic aortic aneurysm, without rupture; Z95.810 Presence of automatic (implantable) cardiac defibrillator; I25.10 Atherosclerotic heart disease of native coronary artery without angina pectoris; I10 Essential (primary) hypertension; R13.10 Dysphagia, unspecified; R74.0 Nonspecific elevation of levels of transaminase and lactic acid dehydrogenase [LDH]
CPT/HCPCS: 36415; 71020; 71275; 76705; 80048; 80053; 80202; 83605; 83880; 85025; 85379; 87040; 87070; 87205; 93005; 94640; 94760; 96365; 96375; A4216; G8978-GP-CM; G8979-GP-CL; G8987-GO-CM; G8988-GO-CJ; G8996-GN-CJ; G8996-GN-CK; G8997-GN-CI; G8997-GN-CJ; J1568; J1642; J1650; J1956; J2920; J2930; J3370; J7050; J7506; J7611; J7620; S0028

== ENCOUNTER 2017-03-22 10:37 | Inpatient (IN) | payer MEDICARE, OTHER, MEDICAID ==
[~2017-03-22 10:37] MED LIST: ISOVUE-370 76%-LOCM 1 ML ONE; Lidocaine 1% PF 5 ML VIAL ONE; PHENYLEPHRINE-NS 100 MCG/ML 10 ML SYRINGE ONE; Propofol 200 MG/20 ML VIAL ONE
[2017-03-22 11:42] LABS: #Eosinphils 0.1 thou/uL (0.0-0.7); #Lymphocytes 0.4 thou/uL (1.20-3.40); #Monocytes 0.9 thou/uL (0.11-0.59); #Neutrophils 10.2 thou/uL (1.40-6.50); %Basophils 0.1 % (0.0-1.0); %Eosinophils 0.5 % (0.0-10.0); %Lymphocytes 3.6 % (21.0-51.0); %Monocytes 7.8 % (0.0-10.0); %Neutrophils 88.1 % (42.0-75.0); Hemoglobin 15.1 g/dL (12.0-16.0); Mean Corpuscular HGB CONC 32.7 g/dL (32.0-36.0); Mean Corpuscular Hemoglobin 32.9 pg (27.0-31.0); Mean Platelet Volume 9.3 fL (7.4-10.4); Platelet Count 77 thou/uL (130-400); RBC Distribution Width 15.9 % (11.5-14.5); Red Blood Cell (RBC) Count 4.59 mill/uL (4.20-5.40); White Blood Cell (WBC) Count 11.6 thou/uL (4.8-10.8)
[2017-03-22 12:05] LABS: ALT (SGPT) 90 U/L (8-55); AST (SGOT) 132 U/L (5-34); Alkaline Phosphatase 525 U/L (40-150); Anion Gap 15 mmol/L (10-20); BUN (Urea Nitrogen) 42 mg/dL (9.8-20.1); Bilirubin, Total 5.3 mg/dL (0.2-1.2); CK (CPK) 52 U/L (29-168); Calc. Creatinine Clearance 0 mL/min (70-130); Calcium 10.3 mg/dL (7.8-10.44); Carbon Dioxide 26 mmol/L (23-31); Chloride 97 mmol/L (98-107); Estimated GFR-MDRD 61; Glucose 156 mg/dL (83-110); Lipase 19 U/L (8-78); Potassium 4.4 mmol/L (3.5-5.1); Sodium 134 mmol/L (136-145)
[2017-03-22 12:10] LABS: CKMB 1.5 ng/mL (0-6.6); Troponin I 0.065 ng/mL (< 0.028)
--- NOTE | 2017-03-22 12:16 | RAD ---
CHEST ONE VIEW: History: Cough. Comparison: 02-25-17, 03-20-17 FINDINGS: Re-demonstration of left sided Mediport catheter, right sided transvenous pacemaker. Heart size is no rmal. Pulmonary vessels are within normal limits. Lung volumes are diminished. Bibasilar pleural and parenchymal changes, likely chronic. No pneumothorax or osseous abnormalities. IMPRESSION: Chronic changes. No acute cardiopulmonary process. Stable exam. POS: [facility]
--- NOTE | 2017-03-22 12:57 | CT ---
NONCONTRAST HEAD CT: HISTORY: Trauma. The patient was found on ground at around 9:45 this morning. Posttraumatic pain. The patie nt is confused. COMPARISON: None. TECHNIQUE: Noncontrast head CT is performed in the axial plane. FINDINGS: No parenchymal hemorrhage. No extraaxial hematoma. No midline shift. Basilar cisterns are patent. Age-appropriate brain volume. Cortical love-white matter differentiation is preserved. Ventricles and sulci are patent and symmetric. Minimal h=white matter hypodensities due to chronic small-vessel ischemic change. The calvarium is intact. Adequate aeration of the mastoid air cells. Mucous retention cyst in the r ight maxillary sinus. IMPRESSION: Chronic small-vessel ischemic change of the white matter. No intracranial posttraumatic sequelae. POS: [facility]
--- NOTE | 2017-03-22 13:07 | RAD ---
RIGHT KNEE FOUR VIEWS: History: Fall, right knee pain. FINDINGS: No acute fracture or dislocation is identified. A joint effusion is present. POS: [facility]
--- NOTE | 2017-03-22 13:07 | RAD ---
ONE VIEW PELVIS: HISTORY: Fall. Post traumatic pain. COMPARISON: 02/16/2015 FINDINGS: Limited evaluation of the sacrum due to bowel gas, fecal material, and contrast in the urinary bladde r. The visualized bony pelvis is intact. The contour of the right femoral head is maintained. Left hip evaluation is limited due to patient position. IMPRESSION: Limited evaluation. No obvious bony pelvic fracture. POS: [facility]
--- NOTE | 2017-03-22 13:08 | RAD ---
RIGHT HIP TWO VIEWS: HISTORY: Trauma. Fall. Pain. COMPARISON: None. FINDINGS: There is diffuse bone demineralization. Contour of the femoral head is maintained. Mild loss of selena nt space height. No fracture. IMPRESSION: No fracture. POS: [facility]
--- NOTE | 2017-03-22 13:19 | CT ---
EXAM: CT CERVICAL SPINE HISTORY: The patient fell at [facility]. Posttraumatic pain. COMPARISON: None. TECHNIQUE: Cervical spine CT is performed without contrast. Reformatted images are submitted for interpretation . FINDINGS: There is appropriate alignment of the lateral masses of C1 and C2. There is appropriate alignment of the facets. Odontoid process is intact. Sagittal reformatted images do not demonstrate any malalignment. There are degenerative changes invo lving the intraarticular facets at multiple levels. There is no prevertebral soft tissue swelling. No epidural hematoma. There are varying degrees of central canal stenosis and foraminal narrowing on the basis of degenerat flor change. Upper mediastinum and lung apices are unremarkable. There is a hyperdense mass involving the left thyroid lobe measuring 1.2 x 1.6 cm. Cervical spine vertebral body height is maintained. No fracture. IMPRESSION: 1. No cervical spine fracture. 2. Hyperdense nodule in the left thyroid lobe. Better interrogation with a nonemergent thyroid ultr asound. POS: [facility]
--- NOTE | 2017-03-22 14:03 | CT ---
EXAM: CHEST CT WITH CONTRAST ABDOMEN CT WITH CONTRAST PELVIC CT WITH CONTRAST LIMITED CT OF THE THORACIC AND LUMBAR SPINE: COMPARISON: None. CORRELATION: CT angiogram of the chest 02/26/17. TECHNIQUE: Chest, abdomen, and pelvic CT performed with IV contrast. Coronal reformatted images are submitted f or interpretation. Limited CT of the thoracic and lumbar spine is performed with reformatted images. HISTORY: Trauma. Patient had a fall and found down. FINDINGS: CHEST CT: Mild heterogeneity of the thyroid gland, incompletely evaluated. No mediastinal mass, lymphadenopath y, or hematoma. Heart size is within normal limits. No pericardial effusion. The ascending thoraci c aorta is mildly prominent measuring 4.3 x 4.5 cm. No dissection. No periaortic fat stranding. Ca lcifications due to atherosclerosis of the descending thoracic aorta and abdominal aorta are noted. No mediastinal mass, lymphadenopathy, or hematoma. Heart size is normal. No pericardial effusion. The trachea and central bronchi are patent. Persistent but improved bibasilar opacities with consoli dation. Bibasilar atelectasis or pneumonia should be considered. Patchy ground-glass opacities in t he lingula. No pneumothorax. ABDOMEN CT: Hypodensities in the right hepatic lobe are too small to characterize. Probable cyst in the left hep atic lobe. The spleen, pancreas, and adrenal glands have appropriate arterial phase enhancement. Sy mmetrical arterial phase enhancement of the kidneys. No obstructive uropathy. No gastrohepatic, retrocrural, or periportal lymphadenopathy. No mesenteric mass, lymphadenopathy, free air, or free fluid. Limited evaluation of the alimentary canal due to the lack of oral contrast. Hiatal hernia is identi fied. Gastric mucosa, duodenum, and normal-caliber small bowel loops are noted. Ileocecal junction is normal. Scattered fecal material in a nondistended, nondilated colon. There is marked fecal mate rial with a markedly distended rectum. There is mild mucosal prominence and adjacent fat stranding, including the presacral fat. The possibility of stercoral colitis cannot be excluded. PELVIC CT: The urinary bladder is unremarkable. Surgically absent uterus. No pelvic mass, lymphadenopathy, fanny e air. Visualized bony pelvis and bony thorax are intact. Evaluation of the ribs is limited by motion degra dation. LIMITED CT OF THE THORACIC AND LUMBAR SPINE: There is a chronic severe compression fracture at T12. No acute thoracic or lumbar spine fractures a re appreciated. IMPRESSION: 1. Heterogeneous thyroid gland. 2. No posttraumatic sequelae in the chest, abdomen, or pelvis. 3. Consolidation in both lung bases with slight improvement in the right lung base. Areas of atelec tasis or pneumonia should be considered. 4. Marked fecal material in the rectal vault. The possibility of stercoral colitis cannot be comple tely excluded. 5. Results of the chest, abdomen, and pelvis CT were discussed with Dr. Jarrett 08/02 at 1:10 p.m. CODE CR POS: [facility]
[2017-03-22 14:17] LABS: Bilirubin Small (Negative); Blood, Urine Negative (Negative); Clarity CLEAR (Clear); Glucose, Urine (Dipstick) Negative (Negative); Leukocyte Small (Negative); Nitrite Negative (Negative); Protein, Urine (Dipstick) Trace mg/dL (Neg-Trace)
[2017-03-22 14:18] LABS: Squamous Epithelial 0-3 HPF (0-3)
[2017-03-22 14:19] LABS: Pathc Cast-AUWi Flag 3.65 (0-2.49)
[2017-03-22] MEDS ORDERED: CEFAZOLIN/Water 2 GM/20 ML SYRINGE ONE (14:22)
[2017-03-22] MEDS ORDERED: Adacel (T-DAP) 0.5 ML VIAL ONE (14:22)
[2017-03-22 14:27] LABS: Hyaline Casts/LPF 4-6 HYALINE CAST LPF (0-3 Hyaline); RBC/HPF None Seen HPF (0-3)
[2017-03-22 14:28] LABS: Bacteria/HPF 1+ HPF (None Seen); Crystals/HPF 2+ CA OXALATE HPF (Negative); Manual Microscopic Reviewed? No Path Casts Seen; Renal Epithelial None Seen HPF (0-3); Transitional Epithelial NONE SEEN HPF (0-3)
[2017-03-22 14:36] LABS: Specific Gravity, Urine 1.049 (1.002-1.036)
[2017-03-22] MEDS ORDERED: Cefepime 2 GM/10 ML SYR ONE (16:01)
[2017-03-22 16:11] LABS: Troponin I 0.113 ng/mL (< 0.028)
[2017-03-22 16:40] LABS: Lactic Acid 1.7 mmol/L (0.5-2.2)
[2017-03-22] MEDS ORDERED: Hydrocortisone Sod Succ/PF 100 mg/2 ml Vial ONE (16:56)
[2017-03-22] MEDS ORDERED: Neomycin-Polymyxin 1 ML AMP ONE ×2 (16:57→18:52)
--- NOTE | 2017-03-22 17:01 | HP ---
REQUESTING PHYSICIAN: Dr. Jarrett. ATTENDING SURGEON: Dez Luna DO CONSULTATIONS: Orthopedics, Dr. Price. HISTORY OF PRESENT ILLNESS: The patient is a 72-year-old woman who is currently in inpatient rehab [facility] status post pacemaker placement. The patient has been there approximately 1 month. Today, she reportedly fell out of her wheelchair and had a significant laceration to her right lower extremity. During the course of her evaluation, it was also noted that she had a significant fecal ball in her rectum with concerns of impaction and possible stercoral colitis at which time we were asked to evaluate the patient for admission and obtain orthopedic consultation for her laceration repair and washout. ALLERGIES: JOSE INHIBITORS, LOMOTIL, PENICILLINS, and STATINS. CURRENT MEDICATIONS: Tramadol, spironolactone, prednisone, leflunomide, furosemide, cholestyramine, Bystolic, and albuterol. PAST MEDICAL HISTORY: Symptomatic bradycardia treated with a pacemaker, polymyositis, sciatica, lumbar arthritis, herniated disks, hypothyroidism, hyperlipidemia, and hypertension. PAST SURGICAL HISTORY: Right axillary lymph node biopsy, pacemaker placement in 01/2017, left chest MediPort, cholecystectomy, and hysterectomy. SOCIAL HISTORY: The patient denies drugs, tobacco, or alcohol use. Currently lives at home alone, but does have a caregiver, who is currently at bedside and unable to provide a significant amount of information for the patient. REVIEW OF SYSTEMS: Ten-point review of systems is negative, unless otherwise stated. PHYSICAL EXAMINATION: VITAL SIGNS: Blood pressure 113/66, heart rate 98, respirations 14, oxygen saturation is 97% on 2 liters via nasal cannula, temperature is 97.7. GENERAL: The patient is awake and alert, will respond appropriately to verbal stimuli. She is oriented x2. HEENT: Atraumatic. Eyes: Extraocular motions are intact. PERRLA bilaterally. Ears are atraumatic without discharge. Nose is atraumatic without discharge. Oropharynx is clear. NECK: Nontender. Trachea is midline. Large nodular thyroid palpated. No JVD. CHEST: Clear to auscultation with moderate inspiratory and expiratory effort. HEART: Regular rate and rhythm. ABDOMEN: Soft, flat, and nontender with active bowel sounds. EXTREMITIES: The left upper extremity shows multiple skin tears, right upper extremity shows a skin tear. The left lower extremity shows marked venous stasis and a skin tear of the knee. The right lower extremity shows a 17 cm laceration to the medial aspect of the mid tibia region and a skin tear. All extremities are neurovascularly intact. Her strength is 4/5 in all extremities. BACK: Appears atraumatic. LABORATORY FINDINGS: White blood cell count 11.6, hemoglobin 15.1, hematocrit 46.2, platelets 77. Sodium 134, potassium 4.4, chloride 97, CO2 of 26, BUN 42, creatinine 0.91, glucose 156. Lactic acid 2.7, total bilirubin 5.3, AST 132, ALT 90, alkaline phosphatase 525. CK 52, CK-MB 1.5, troponin 0.065. Urinalysis shows 4-6 wbc's, small LE, no nitrites, 1+ bacteria. RADIOGRAPHIC FINDINGS: CT of the brain without contrast shows chronic small vessel ischemic change of the white matter, no intracranial post-traumatic sequela. CT of the C-spine without contrast shows no cervical spine fracture. Hyperdense nodule in the left thyroid lobe that would be better evaluated with a nonemergent thyroid ultrasound. CT of the chest, abdomen, and pelvis with IV contrast shows: 1. Heterogeneous thyroid gland. 2. No post-traumatic sequela of the chest, abdomen, or pelvis. 3. Consolidation in both lung bases with slight improvement in the right lung base. Areas of atelectasis or pneumonia should be considered. 4. Marked fecal material in the rectal vault. The possibility of stercoral colitis cannot be completely excluded. Four views of the right knee showed no acute fracture or dislocation. AP pelvis shows no obvious bony pelvic fracture. Two views of the right hip showed no fracture. AP chest shows chronic changes, no acute cardiopulmonary process. ASSESSMENT AND PLAN: 1. Status post fall from wheelchair. 2. Multiple skin tears. 3. A 17 cm laceration to right lower extremity. 4. Paced heart rhythm. 5. Chronic venous stasis, bilateral lower extremities. 6. Pain secondary to trauma. Plan will be to admit the patient to the surgical floor after discussion with Dr. Price. He would like to take the patient to the operating room for irrigation and debridement, and closure of her wound. The patient will also have medications to address her fecal impaction. We will most likely undergo attempted digital impaction again, this was attempted by the ER physician earlier. The evaluation, examination, laboratory, and radiographic findings were all discussed with Dr. Luna. He will see the patient on the floor. YUN
[2017-03-22] MEDS ORDERED: Ketamine 50 MG/ML VIAL ONE (17:21)
[2017-03-22] MEDS ORDERED: Promethazine HCl 25 MG/ML VIAL SLOW IVP PRN (18:44)
[2017-03-22] MEDS ORDERED: Promethazine HCl 25 MG/ML VIAL IM PRN (18:44)
[2017-03-22] MEDS ORDERED: Ondansetron HCl/PF 4 MG/2 ML Vial IVP PRN ×2 (18:44→22:28)
[2017-03-22] MEDS ORDERED: Bupivacaine/Epinephrine 0.25% 30 ML VIAL ONE (18:52)
[2017-03-22] MEDS ORDERED: Fentanyl 100 MCG/2 ML VIAL ONE (19:47)
[2017-03-22 20:23] LABS: CKMB 1.3 ng/mL (0-6.6); Troponin I 0.088 ng/mL (< 0.028)
[2017-03-22] MEDS ORDERED: Acetaminophen 500 MG TAB PO PRN (22:28)
[2017-03-22] MEDS ORDERED: Mineral Oil ENEMA PR SCH (22:28)
[2017-03-22] MEDS ORDERED: Dextrose 50% Abboject 50 ML SYRINGE SLOW IVP PRN (22:28)
[2017-03-22] MEDS ORDERED: Ondansetron ODT 4 MG TAB PO PRN (22:28)
[2017-03-22] MEDS ORDERED: Ibuprofen 200 MG TAB PO PRN (22:28)
[2017-03-22] MEDS ORDERED: CEFAZOLIN 1 GM in Sodium Chloride 0.9% 100 ML IVPB SCH (22:28)
[2017-03-22] MEDS ORDERED: Dextrose 5% in Water 1,000 ML IV PRN (22:28)
--- NOTE | 2017-03-22 22:29 | OP ---
DATE OF OPERATION: 03/22/2017 PREOPERATIVE DIAGNOSIS: 20-cm laceration on the anterior medial aspect of the mid right leg (cath ar ea). POSTOPERATIVE DIAGNOSIS: 20-cm laceration on the anterior medial aspect of the mid right leg (cath a aristeo). PROCEDURE: Irrigation and debridement and primary closure of a complex 20-cm laceration in the mid r ight leg. SURGEON: Reyes Price MD ANESTHESIA: General. TECHNIQUE: The patient had received preoperative IV antibiotics in the emergency room. She was take n to the operating room, placed in supine position, and satisfactory general anesthesia was performed . The right lower extremity was thoroughly prepped and draped in the usual fashion. Tourniquet was not used on the right lower extremity. The small bleeders from superficial veins were cauterized. T he wound was noted to extend on the anterior medial aspect of the mid right leg down to the medial as pect of the posterior compartment. It did not go into the posterior or deep compartment and did not go down to bone. This wound was copiously irrigated with antibiotic solution using high-speed irriga tor and then was closed using 0 Vicryl with interrupted simple sutures for the fat and subcutaneous l angie, and the skin was closed using 3-0 Rapide. A 0.25-inch Jose Elias drain was placed in the wound an d left protruding out the posterior medial aspect of the wound to allow for drainage. A sterile dres sing was applied and the patient was awakened, extubated, and transferred to the recovery room in sta ble condition. ESTIMATED BLOOD LOSS: 20 mL. COMPLICATIONS: None.
[2017-03-22] MEDS: Sodium Chloride 0.9% 1,000 ML IV SCH (23:00)
[2017-03-22] MEDS: Senokot S 8.6-50 MG TAB PO SCH (23:04)
[2017-03-22] MEDS: CEFAZOLIN 1 GM, Syringe 2.5 ML in Sterile Water 7.5 ML SLOW IVP SCH (23:06)
[2017-03-22] MEDS: Furosemide 20 MG TAB PO SCH (23:06)
[2017-03-22] MEDS: traMADol HCl 50 MG TAB PO PRN (23:29)
[2017-03-22] MEDS: Spironolactone 25 MG TAB PO SCH (23:30)
[2017-03-22] MEDS: Leflunomide 10 mg Tablet PO SCH (23:30)
--- NOTE | 2017-03-23 01:44 | PRG ---
DATE OF SERVICE: 03/22/2017 SUBJECTIVE: Joselin Peraza is a 72-year-old female admitted earlier today after a fall out of her whee lchair resulting in laceration to her right lower extremity. She was admitted by our team and taken to the operating room for laceration repair and washout. Postoperatively, the patient is hemodynamic ally stable. She remains somewhat drowsy from her anesthesia. OBJECTIVE: VITAL SIGNS: Heart rate 68, blood pressure 113/54, O2 sat 100% on nasal cannula. GENERAL: The patient resting in bed no acute distress. Breathing is nonlabored. EXTREMITIES: Right lower extremity dressing is clean, dry, and intact. She has extensive areas of b ruising bilaterally. ASSESSMENT AND PLAN: As documented in history and physical earlier today. Continue care as ordered. We will follow last set of troponins. The patient to be disimpacted by nursing staff once she is o n the floor. We will continue to monitor closely.
[2017-03-23 06:15] LABS: Bilirubin, Direct 1.8 mg/dL (0.1-0.3); Bilirubin, Total 2.8 mg/dL (0.2-1.2)
[2017-03-23 06:20] LABS: CKMB 1.1 ng/mL (0-6.6); Troponin I 0.067 ng/mL (< 0.028)
[2017-03-23] MEDS: Sodium Chloride 0.9% 1,000 ML IV SCH ×2 (06:33→17:33)
[2017-03-23] MEDS: CEFAZOLIN 1 GM, Syringe 2.5 ML in Sterile Water 7.5 ML SLOW IVP SCH ×3 (06:34→22:24)
[2017-03-23 07:07] LABS: Band 7 % (5-11); Hemoglobin 14.8 g/dL (12.0-16.0); Lymphocytes 2 % (21-51); MDiff Complete? YES; Mean Corpuscular HGB CONC 31.3 g/dL (32.0-36.0); Mean Corpuscular Hemoglobin 31.9 pg (27.0-31.0); Mean Platelet Volume 9.9 fL (7.4-10.4); Monocytes 2 % (0-10); Neutrophil 89 % (42-75); PLT Morphology Comment Appears Decreased; Platelet Count 50 thou/uL (130-400); RBC Distribution Width 16.1 % (11.5-14.5); Red Blood Cell (RBC) Count 4.64 mill/uL (4.20-5.40)
[2017-03-23 08:13] LABS: ALT (SGPT) 51 U/L (8-55); AST (SGOT) 76 U/L (5-34); Albumin 2.6 g/dL (3.4-4.8); Alkaline Phosphatase 401 U/L (40-150); Anion Gap 17 mmol/L (10-20); BUN (Urea Nitrogen) 37 mg/dL (9.8-20.1); Bilirubin, Total 2.8 mg/dL (0.2-1.2); Calc. Creatinine Clearance 73 mL/min (70-130); Calcium 8.9 mg/dL (7.8-10.44); Carbon Dioxide 19 mmol/L (23-31); Chloride 106 mmol/L (98-107); Estimated GFR-MDRD 72; Globulin 2.6 g/dL (2.4-3.5); Glucose 120 mg/dL (83-110); Phosphorus 3.2 mg/dL (2.3-4.7); Potassium 4.3 mmol/L (3.5-5.1); Protein, Total 5.2 g/dL (6.0-8.3); Sodium 138 mmol/L (136-145)
[2017-03-23] MEDS ORDERED: FLU VACC TS2017-18 (>65YR) 0.5 ML SYRINGE IM ONE (09:00)
[2017-03-23] MEDS: Famotidine 20 MG TAB PO SCH ×3 (09:55→20:40)
[2017-03-23] MEDS: Senokot S 8.6-50 MG TAB PO SCH ×2 (09:58→20:41)
[2017-03-23] MEDS: Cholestyramine/Aspartame 4 gm Packet PO SCH (09:58)
[2017-03-23] MEDS: predniSONE 20 MG TAB PO SCH (09:58)
[2017-03-23] MEDS: Nebivolol HCl 5 MG TAB PO SCH (09:58)
[2017-03-23] MEDS: traMADol HCl 50 MG TAB PO PRN (10:02)
[2017-03-23] MEDS ORDERED: Magnesium Citrate 300 ML BOT PO SCH (12:00)
[2017-03-23] MEDS ORDERED: Polyethylene Glycol 3350 17 GM Packet PO SCH (12:00)
[2017-03-23] MEDS: Leflunomide 10 mg Tablet PO SCH (20:40)
[2017-03-23] MEDS: Spironolactone 25 MG TAB PO SCH (20:40)
[2017-03-23] MEDS: Furosemide 20 MG TAB PO SCH (20:44)
[2017-03-23] MEDS ORDERED: Nitroglycerin 50 MG/250 ML BOT 0 ML ONE (22:21)
--- NOTE | 2017-03-23 23:21 | PRG ---
DATE OF SERVICE: 03/23/2017 SUBJECTIVE: This is a 72-year-old female admitted for fall out of her wheelchair resulting in lacera tion. She is postop day #1 status post operative repair of said laceration. She vocalized no compla ints this evening. OBJECTIVE: VITAL SIGNS: Reviewed and stable at this time. She is afebrile. LUNGS: Breathing is nonlabored. She is on 2-1/2 liters nasal cannula. ABDOMEN: Surgical dressing is clean, dry, and intact. ASSESSMENT AND PLAN: As documented in daily progress note. We will discontinue IV fluids at this ti me given the patient's history of CHF. Check a.m. BNP. Otherwise, care as ordered and continue to m onitor.
[2017-03-24] MEDS ORDERED: Furosemide 20 MG/2 ML VIAL SLOW IVP SCH (04:00)
[2017-03-24 06:23] LABS: Anion Gap 19 mmol/L (10-20); Calcium 9.2 mg/dL (7.8-10.44); Carbon Dioxide 18 mmol/L (23-31); Chloride 108 mmol/L (98-107); Magnesium 3.1 mg/dL (1.6-2.6); Phosphorus 2.3 mg/dL (2.3-4.7); Potassium 4.8 mmol/L (3.5-5.1); Sodium 140 mmol/L (136-145)
[2017-03-24] MEDS: CEFAZOLIN 1 GM, Syringe 2.5 ML in Sterile Water 7.5 ML SLOW IVP SCH ×3 (06:24→22:01)
[2017-03-24 06:28] LABS: BUN (Urea Nitrogen) 36 mg/dL (9.8-20.1); Calc. Creatinine Clearance 78 mL/min (70-130); Estimated GFR-MDRD 77; Glucose 105 mg/dL (83-110)
[2017-03-24] MEDS: Nebivolol HCl 5 MG TAB PO SCH (07:57)
[2017-03-24] MEDS: Famotidine 20 MG TAB PO SCH ×2 (07:57→21:47)
[2017-03-24] MEDS: predniSONE 20 MG TAB PO SCH (07:59)
[2017-03-24] MEDS: Senokot S 8.6-50 MG TAB PO SCH ×2 (07:59→21:55)
[2017-03-24] MEDS: Polyethylene Glycol 3350 17 GM Packet PO SCH (07:59)
[2017-03-24] MEDS ORDERED: Midazolam HCl 2 mg/2 ml Vial ONE (10:53)
[2017-03-24] MEDS ORDERED: Aspirin 300 MG Suppository ONE (10:53)
[2017-03-24] MEDS ORDERED: EPINEPHrine 1 MG/10 ML Abboject SYRINGE ONE (11:04)
[2017-03-24] MEDS: Norepinephrine 8 MG in Sodium Chloride 0.9% 250 ML 242 ML IVPB SCH ×2 (11:11→18:21)
[2017-03-24 11:30] LABS: Actual Bicarbonate (HCO3a) 26.4 mEq/L (22-26); Base Excess (BEa) 0.1 mEq/L (0 (+/-) 2.5); CO2 Tension 49.9 mmHg (35.0-45.0); Calcium, Ionized 1.1 mmol/L (1.12-1.30); Hematocrit-ABG 35.5 % (36.0-47.0); Hemoglobin (Hb) 12.6 g/dL (12.0-16.0); O2 Tension (PaO2) 63.9 mmHg (80.0-100.0); pH, Arterial 7.34 (7.35-7.45)
[2017-03-24 11:32] LABS: ALV-art Gradient 299.725 (0-20); Puncture Site RRA
[2017-03-24 11:48] LABS: Actual Bicarbonate (HCO3a) 27.9 mEq/L (22-26); Base Excess (BEa) -2.9 mEq/L (0 (+/-) 2.5); Calcium, Ionized 1.3 mmol/L (1.12-1.30); Hemoglobin (Hb) 15.1 g/dL (12.0-16.0); pH, Arterial 7.17 (7.35-7.45)
[2017-03-24 11:49] LABS: CO2 Tension 78.9 mmHg (35.0-45.0); O2 Tension (PaO2) 43.3 mmHg (80.0-100.0); Puncture Site LRA
[2017-03-24 11:50] LABS: ALV-art Gradient 170.915 (0-20)
[2017-03-24] MEDS ORDERED: Lacri-Lube Opth Oint 3.5 GM TUBE EA EYE PRN (11:54)
[2017-03-24] MEDS ORDERED: Sedation Protocol FS ONE (11:54)
[2017-03-24] MEDS ORDERED: Fentanyl 100 MCG/2 ML VIAL ONE (11:59)
[2017-03-24] MEDS ORDERED: DISCONTINUE PREVIOUS NARCOTIC PAIN MEDICATIONS AND BENZODIAZEPINES FS SCH (12:00)
[2017-03-24] MEDS ORDERED: fentaNYL Citrate/PF 2,000 MCG in Sodium Chloride 0.9% 60 ML IV SCH (12:00)
[2017-03-24] MEDS ORDERED: Lorazepam 2 MG/ML VIAL SLOW IVP PRN (12:00)
[2017-03-24] MEDS ORDERED: Propofol 1,000 MG/100 ML VIAL IV PRN (12:00)
[2017-03-24] MEDS ORDERED: Morphine 2 MG/ML SYRINGE SLOW IVP PRN (12:00)
[2017-03-24] MEDS ORDERED: Sodium Bicarb 50 MEQ/50 ML Abboject 8.4% SYRINGE ONE ×2 (12:05→16:56)
[2017-03-24] MEDS: Cholestyramine/Aspartame 4 gm Packet PO SCH (12:48)
[2017-03-24] MEDS: Hydrocortisone Sod Succ/PF 100 mg/2 ml Vial IVP SCH ×2 (12:48→18:21)
[2017-03-24] MEDS: Vancomycin HCl 1 GM in Premix Bag 1 BAG IVPB SCH (13:21)
[2017-03-24] MEDS: Sodium Chloride 0.9% 1,000 ML IV SCH (14:00)
[2017-03-24 14:37] LABS: Lactic Acid 3.2 mmol/L (0.5-2.2)
--- NOTE | 2017-03-24 15:11 | CON ---
DATE OF CONSULTATION: 03/24/2017 SERVICE: Pulmonary Medicine. REASON FOR CONSULTATION: Respiratory failure. HISTORY OF PRESENT ILLNESS: The patient is a 72-year-old white female with past medical history sign ificant for possible liver disease. She was in her usual state of health when she presented to the [facility] from her wheelchair with a laceration of the right lower extremity. She also had a significa nt constipation consistent with impaction. She went for repair of the laceration wash out. She was doing fairly well, but she is postop day #2 from that procedure and she had a change in mentation. A n ABG was performed demonstrated a low pH, and acute hypercapnic respiratory failure. She was subseq uently moved to the ICU. We intubated the patient. We are in the middle of resuscitation. She lacey ot provide me any additional elements of the history because she is completely obtunded. PAST MEDICAL HISTORY: 1. Hypertension. 2. History of polymyositis. 3. Third-degree AV block, status post pacemaker placement. PAST SURGICAL HISTORY: Pacemaker placement. SOCIAL HISTORY: Negative for alcohol, tobacco or illicit drug use. FAMILY HISTORY: Noncontributory. MEDICATIONS: List of her inpatient medications were reviewed. Multiple small updates were made. ALLERGIES: ATROPINE, PENICILLIN, DIPHENOXYLATE and STATINS. REVIEW OF SYSTEMS: This cannot be obtained as the patient is currently obtunded. PHYSICAL EXAMINATION: VITAL SIGNS: Afebrile, pulse 101, blood pressure 113/72, respirations 24 and saturation 92% on 3.5 l iters nasal cannula. HEENT: Normocephalic and atraumatic. There are multiple ecchymoses throughout her entire body. Muc kimberlyn is dry. Sclerae is yellow. LUNGS: Decent air entry. Rhonchi are present. There are no dependent crackles or wheezing present. HEART: Normal rate, regular. ABDOMEN: Soft, nontender and nondistended. Bowel sounds are positive. MUSCULOSKELETAL: No cyanosis or clubbing. There is 2+ pitting in the bilateral lower extremities. GENITOURINARY: A Hernandez catheter in place now. NEUROLOGIC: Completely obtunded, but grossly nonfocal. LABORATORY DATA: WBC 9.0, hemoglobin 14.8 and platelets 50,000. D-dimer 3.04. PH 7.34 and pCO2 of 50. Basic metabolic profile is essentially unremarkable otherwise. Magnesium and phosphorus are unr emarkable. BNP 192. Troponin is in the intermediate range. Two out of two blood cultures are growi ng coag negative staph. Influenza A and B is unremarkable. IMAGING DATA: 1. X-ray of the hip demonstrates no acute fracture. 2. X-ray of the pelvis demonstrates no acute fracture. 3. X-ray of the knee demonstrates no acute osseous abnormality or subluxation. There is a joint eff usion present. 4. CT of the chest, abdomen and pelvis demonstrates a heterogeneous thyroid gland. No post-traumati c sequela in the chest, abdomen or pelvis. Consolidation in both lung bases with slight improvement in the right lung base. Marked fecal material in the rectal vault. Colitis is a possibility. 5. CT of the brain demonstrates no acute intracranial abnormality. 6. Chest x-ray demonstrates chronic changes with no acute cardiopulmonary abnormality identified. ASSESSMENT: 1. Acute hypoxic and hypercapnic respiratory failure. 2. Septic shock. 3. Bacteremia secondary to coag negative Staph associated with indwelling catheter. 4. Possible chronic liver disease given persistent thrombocytopenia and hyperbilirubinemia. 5. History of poliomyelitis situs. PLAN: We have aggressively resuscitated the patient with some fluid. I gave her 2 amps of bicarbona te and she was intubated to protect airway. At that point, she had a significant drop in blood press ure. We could not get a blood pressure, although we never did lose pulse, so she never required ches t compressions. A central line, and arterial catheter were placed. She was started on some Levophed . At that point, we had a resurgence in blood pressure. I initiated stress doses of steroids. She will remain in the ICU over the next 24 hours on mechanical ventilation. CRITICAL CARE TIME: 45 minutes.
--- NOTE | 2017-03-24 15:57 | RAD ---
FRONTAL VIEW CHEST: Indication: Intubation. FINDINGS: Endotracheal tube is present with tip above the melissa. There are bilateral perihilar and bibasilar o pacities. Bilateral pleural fluid is present. There is enlargement of the cardiac silhouette and pulm onary vasculature. Numerous extrinsic artifacts are present. Left sided chest port and right sided ca rdiac pacing device remain. IMPRESSION: 1. Intubated patient. 2. Findings which indicate decompensated CHF. Recommend continued follow up. POS: NICO
--- NOTE | 2017-03-24 16:11 | PRG ---
DATE OF SERVICE: 03/24/2017 SUBJECTIVE: Ms. Peraza is a 72-year-old [facility] a fall due to which she sustained complex lower extremity laceration and multiple skin tears. She underwent repair of the 17 cm laceration to her right lower extremity. Given her cardiac arrhythmia history, the patient was admitted to the telemetry unit. Upon evaluation this morning, the patient was noted with a markedly diminished mental status. Nursing reported the patient has been noncompliant with cares including refusal to participate in spe ech evaluation for swallow. She has adamantly attempted to take some fluids without speech evaluatio n and may very well have aspirated this morning. She looked agonal on my evaluation with diminished air entry on chest examination. Her breathing on my observation was shallow as well. OBJECTIVE: VITAL SIGNS: This morning, included blood pressure of 113/72, pulse 110, respiratory rate 24. Maxim um temperature in the last 24 hours is 97.8 degrees Fahrenheit, oxygen saturation 92% on 4 liters by nasal cannula oxygen. HEENT: Reveals bilateral scleral edema. She has no jugular venous distention noted. HEART: Revealed a regular rate with sinus tachycardia. LUNGS: Reveals scattered rhonchi. Breathing is regular and unlabored. ABDOMEN: Soft, nontender and nondistended. Liver and spleen are nonpalpable below costal margins. EXTREMITIES: Reveals dressings, which are intact and dry. Capillary refill less than 2 seconds. Sh e has 2+ radial and pedal pulses bilaterally. NEUROLOGIC: Although, she has a decline in mental status, Elizabeth coma scale; however, is noted at E 3, M6, V3. LABORATORY DATA: Today includes metabolic profile: Sodium 140, potassium 4.8, chloride is 108, bica rbonate 18, BUN 36, creatinine 0.74, glucose 105, magnesium 3.1 and phosphorus is 2.3. IMPRESSION: 1. Acute pulmonary insufficiency with respiratory failure and evolution. 2. Likely acute pulmonary aspiration. 3. Status post fall with multiple skin tears. PLAN: Urgent transfer to the Intensive Care Unit and possible elective intubation and mechanical eliezer tilatory support. I attempted to reach the patient's relatives. I spoke with her brother, courtney Camara on the telephone and he indicated that his sister will not like to be sustained on mechanical ve ntilatory support for a long period of time. He was okay; however, with the intubation and brief mechanical ventilator support if warranted. He paula saldana does indicate his sister's intentions to be a DNR in the setting. On his advise, I attempted to contact the patient's older brother, Giovanni, without success. I called him twice, each time he will go on to voicemail. The patient is currently in the Intensive Care Unit at the time of completion of this dictation.
--- NOTE | 2017-03-24 17:54 | RAD ---
ABDOMEN ONE VIEW: History: NG tube placement. Comparison: None. FINDINGS: The enteric tube tip gastric body. No dilated air filled loops or small bowel. IMPRESSION: Enteric tube tip in the gastric body. Recommend advancing. POS: NICO
[2017-03-24] MEDS ORDERED: Lactated Ringer's 500 ML IV SCH (18:45)
[2017-03-24] MEDS: Leflunomide 10 mg Tablet PO SCH (20:35)
[2017-03-24] MEDS: Famotidine/PF 20 mg/2ml Vial SLOW IVP SCH (21:54)
[2017-03-24] MEDS: Spironolactone 25 MG TAB PO SCH (21:55)
[2017-03-25] MEDS: Hydrocortisone Sod Succ/PF 100 mg/2 ml Vial IVP SCH ×5 (00:09→23:59)
[2017-03-25] MEDS: Vancomycin HCl 1 GM in Premix Bag 1 BAG IVPB SCH ×2 (00:09→12:52)
--- NOTE | 2017-03-25 00:39 | PRG ---
DATE OF SERVICE: 03/24/2017 SUBJECTIVE: Joselin Peraza is a 72-year-old female with a complex medical history, who was admitted af ter a fall out of wheelchair. Early this morning, the patient had some increasing oxygen needs. Her day shift documentation, she was altered during their evaluation. An ABG at that time demonstrated respiratory acidosis. The patient was transferred to the ICU and intubated. She is currently intuba kristi and sedated and on levo at 17 mcg per minute. Family is at bedside. They do not localize any qu estions at this time. OBJECTIVE: VITAL SIGNS: Reviewed and stable at this time. The patient is on SIMV, PEEP of 5, FiO2 27%, tidal v olume of 470, respiratory rate set at 13, blood pressure is 120/50, heart rate 69, and O2 sat is 96%. GENERAL: The patient is intubated and sedated. LUNGS: Chest rise is symmetric. CARDIOVASCULAR: Regular rhythm without any obvious murmurs, rubs or gallops. ABDOMEN: Soft, nontender, nondistended. MUSCULOSKELETAL: There is scattered ecchymosis and bruising. Surgical dressing is clean, dry, and i ntact. ASSESSMENT AND PLAN: As documented in daily progress note. Continue care as ordered. Continue to m onitor. Critical care has recently been notified of low urine output for which fluid bolus was order ed. We will continue to monitor.
[2017-03-25] MEDS: Norepinephrine 8 MG in Sodium Chloride 0.9% 250 ML 242 ML IVPB SCH ×2 (00:46→10:19)
--- NOTE | 2017-03-25 02:56 | OP ---
DATE OF SERVICE: 03/24/2017 SERVICE: Pulmonary Medicine. PROCEDURE: Emergent endotracheal intubation. CONSENT: Procedure was performed emergently secondary to clinical condition and respiratory failure. STAFF PHYSICIAN: Johnny Diaz M.D. MEDICATIONS: 1. Versed 2 mg IV push. 2. Etomidate 20 mg IV push. PREPROCEDURE DIAGNOSES: 1. Acute hypoxic respiratory failure. 2. Septic shock. POSTPROCEDURE DIAGNOSES: 1. Acute hypoxic respiratory failure. 2. Septic shock. DESCRIPTION OF PROCEDURE: Vital sign monitoring was accomplished by noninvasive hemodynamic monitori ng, pulse oximetry, and telemetry. In the supine position, the patient was preoxygenated with bag va lve mask ventilation and maintained with saturations of 100%. Following induction of anesthesia, a G lideScope was inserted through the mouth offering clear identification of the posterior oropharynx, l aryngeal structures with a grade 1 view. An endotracheal tube was visualized passing through the voc al cords. Placement was confirmed by condensation in the endotracheal tube and bi-axillary chest aus cultation. Endotracheal tube was secured to 23 cm, measured at the teeth. The patient was placed on mechanical ventilation with good return of volumes. Post-procedure x-ray revealed good location for the endotracheal tube. ESTIMATED BLOOD LOSS: None. COMPLICATIONS: Postoperative hypotension occurred resulting in need for aggressive resuscitation.
[2017-03-25] MEDS: Sodium Chloride 0.9% 1,000 ML IV SCH ×2 (05:06→11:43)
[2017-03-25 06:06] LABS: #Lymphocytes 0.4 thou/uL (1.20-3.40); #Monocytes 0.8 thou/uL (0.11-0.59); #Neutrophils 7.3 thou/uL (1.40-6.50); %Basophils 0.1 % (0.0-1.0); %Eosinophils 0.2 % (0.0-10.0); %Lymphocytes 5.1 % (21.0-51.0); %Neutrophils 85.7 % (42.0-75.0); Mean Corpuscular HGB CONC 32.3 g/dL (32.0-36.0); Mean Corpuscular Hemoglobin 32.4 pg (27.0-31.0); Mean Platelet Volume 8.1 fL (7.4-10.4); PLT Morphology Comment Appears Decreased; Platelet Count 111 thou/uL (130-400); RBC Distribution Width 16.3 % (11.5-14.5); Red Blood Cell (RBC) Count 4.03 mill/uL (4.20-5.40); White Blood Cell (WBC) Count 8.5 thou/uL (4.8-10.8)
[2017-03-25 06:13] LABS: Anion Gap 15 mmol/L (10-20); BUN (Urea Nitrogen) 35 mg/dL (9.8-20.1); Calc. Creatinine Clearance 80 mL/min (70-130); Calcium 8.1 mg/dL (7.8-10.44); Carbon Dioxide 24 mmol/L (23-31); Chloride 110 mmol/L (98-107); Estimated GFR-MDRD 80; Glucose 147 mg/dL (83-110); Magnesium 2.3 mg/dL (1.6-2.6); Phosphorus 1.3 mg/dL (2.3-4.7); Potassium 3.6 mmol/L (3.5-5.1); Sodium 145 mmol/L (136-145)
[2017-03-25] MEDS ORDERED: Potassium Phosphate 30 MMOL in Sodium Chloride 0.9% 250 ML 250 ML IVPB SCH (06:45)
--- NOTE | 2017-03-25 08:51 | RAD ---
PORTABLE AP CHEST: Date: 03-25-17 History: Follow up evaluation. Possible aspiration. Comparison: 03-24-17 FINDINGS: Endotracheal tube and left subclavian Mediport catheter remain in place and unchanged in position. Th ere has been interval placement of a nasogastric tube with tip overlying the expected location of the body of the stomach. There are bibasilar parenchymal changes, more prominent on the left, with sugge stion of consolidation at the medial left lung base. Parenchymal density at the right lung base has i mproved from the prior study. Perihilar interstitial densities have also improved compared to the jose or exam with no interval change. IMPRESSION: 1. Parenchymal opacity with consolidation at the medial left lung base worrisome for pneumonia. 2. Patchy density at the right lung base which also could be related to pneumonitis. This has improve d from the prior study and could potentially be related to improving atelectasis. 3. Improvement in bilateral perihilar interstitial densities which could be related to improvement in pulmonary edema. 4. Interval placement of a nasogastric tube with tip overlying the body of the stomach. 5. Continued follow up to complete resolution is recommended. POS: NICO
[2017-03-25] MEDS: Enoxaparin Sodium 30 MG/0.3 ML SYRINGE SC SCH (09:05)
[2017-03-25] MEDS: Famotidine/PF 20 mg/2ml Vial SLOW IVP SCH ×2 (09:05→21:10)
[2017-03-25] MEDS: Cholestyramine/Aspartame 4 gm Packet PO SCH (09:06)
[2017-03-25] MEDS: Nebivolol HCl 5 MG TAB PO SCH (09:07)
[2017-03-25] MEDS: Senokot S 8.6-50 MG TAB PO SCH ×2 (09:07→21:10)
[2017-03-25] MEDS: Polyethylene Glycol 3350 17 GM Packet PO SCH (09:07)
--- NOTE | 2017-03-25 15:01 | CON ---
DATE OF CONSULTATION: 03/25/2017 REASON FOR CONSULTATION: Device infection. HISTORY OF PRESENT ILLNESS: A 72-year-old patient who has had 2 prior admissions to this hospital, the first one in 02/15/2017 when she presented with diastolic CHF, with the demand ischemia, third degree AV block requiring pacemaker placement. At that time, she had a history of some inflammatory myopathy or neuropathy and she was being treated with monthly immunoglobulin infusions under supervision of a neurologist at [facility]. Three weeks later, she was brought in with reconditioning cough and fever. She was given IV antimicrobial therapy with improvement. The microbiology info at that time included a negative influenza test and negative blood cultures. The respiratory virus PCR panel test was not done. Patient was released to rehabilitation at [facility] on tramadol, Aldactone, Bystolic, Levaquin, Arava , and Lasix. The chest x-ray at that time had demonstrated patchy density seen in the left lung base consistent with atelectases or scar. While at rehab, she fell from her wheelchair and sustained a laceration to be readmitted to this hospital on 03/22/2017. The initial findings included a BP 113/66, heart rate 98, respiratory rate 14, O2 sat 97% on 2 liters, and temperature 97.7. She appeared awake, alert, responding appropriately and she had skin tears in the upper extremities and bruising and local skin tear in the right lower extremity , 17 cm laceration. White cell count 11,000, hemoglobin 15, sodium 134, creatinine 0.91, lactic acid 2.7, bilirubin 5.3, AST 132, ALT 90, alkaline phosphatase 525. The patient had a CT of brain with chronic ischemic changes. CT of C-spine was okay except for a nodule in the thyroid lobe and CT of chest, abdomen, and pelvis with heterogeneous thyroid gland, consolidation in both lung bases with slight improvement, fecal material in rectal vault consistent with impaction. On 03/24/2017, two days after admission, she was noted to have a change in mental status and she was tachypneic and BP 113/72, pulse 110, respiratory rate 24, temperature 97.8. The lungs with scattered inspiratory crackles. Heart exam with regular rate. Sodium 140, creatinine 0.74, bicarbonate 18. The patient eventually required intubation on mechanical ventilation. The chest x-ray demonstrated decompensated CHF. Dr. Diaz was consulted. His impression was hypoxic hypercapnic respiratory failure, possible septic shock, bacteremia secondary to coagulase negative Staph, chronic liver disease, possible. She was given IV fluids and bicarbonate. She lost her blood pressure, but never lost pulse. She was started on Levophed with recovery of blood pressure, given stress dose of steroids. She was started on antimicrobial therapy with levofloxacin and vancomycin. Followup chest x-ray from today with patchy density right lung base and perihilar interstitial densities, which have improved. Currently, Ms. Peraza is intubated. She is awake and follows commands. She is able to answer questions properly. She denies headaches, no chest pain, no abdominal pain. PAST MEDICAL HISTORY: includes Cardiomyopathy with diastolic dysfunction, hypothyroidism, hyperlipidemia, herniated disks, sciatica, polymyositis reportedly undergoing treatment with monthly immunoglobulin infusions and recent bradycardia managed with pacemaker placement as well as hypertension. PAST SURGICAL HISTORY: Includes axillary lymph node biopsy, pacemaker, MediPort , cholecystectomy, and hysterectomy. SOCIAL HISTORY: Never a smoker, had been living in an apartment in the area with the caregiver. Two sons, do not live in the area. ALLERGIES: PENICILLIN, STATINS, LOMOTIL, and JOSE INHIBITORS. PHYSICAL EXAMINATION: VITAL SIGNS: T-max 98.2, blood pressure 100/58, pulse 66, saturations 98%. SKIN: She has multiple areas of bruising in the upper and lower extremities with large laceration in the anterior right leg. The left-sided port is accessed. The pacemaker pocket site appears normal with a little bit of bruising. GENERAL: She is awake, a little bit of icterus in the scleral area. HEENT: Pupils are about 3 mm and reactive, symmetric. Oral cavity was not particularly remarkable. NECK: Supple. LUNGS: With symmetric air entry with faint basilar crackles. HEART: S1, S2, regular rate. ABDOMEN: Soft. Not distended. No ascites, no bladder distention. EXTREMITIES: She has a Hernandez catheter in place. NEUROLOGIC: She is able to move extremities on command and seems to be aware of environment and answer questions with signs appropriately. LABORATORY DATA: White cell count down from 11 to 8.5, hemoglobin is 13, platelets 111, pH 7.3, pCO2 49, pO2 63. Sodium 145, creatinine 0.72, AST 76, ALT 51, alkaline phosphatase 41, bilirubin 1.8. Microbiology, Staphylococcus epidermides isolated from the peripheral vein sample as well as the port sample. Currently receiving levofloxacin and vancomycin. ASSESSMENT: 1. Some form of polymyositis undergoing treatment with IVIG on a monthly basis report. 2. Bradycardia, which required pacemaker placement. 3. Laceration with fall from wheelchair at the rehabilitation. 4. Respiratory insufficiency associated with likely pulmonary edema plus bacteremia with coagulase negative Staphylococcus as noted above. DISCUSSION: The differential diagnosis includes colonization of the port with Staph epidermidis, which is the more likely scenario. Contamination of the sample is another possibility, although less likely. Endocarditis is a possibility, specifically pacer lead colonization. Patient has a pacer device in the right side, which is the pacer recently inserted. The management options would include treating for a short period of time bacteremia and then transition to lock solution with vancomycin through a port for approximately 2 weeks, which for Coag neg staphylococci has a success rate around 80%. Check echocardiogram if not done yet. It looks like there is a question regarding advanced directives out there and evidently the ideal solution will be to remove the port, but I think we can probably handle this with lock solution well. If there is recurrence of bacteremia then device will require removal MTDD
--- NOTE | 2017-03-25 18:03 | PRG ---
DATE OF SERVICE: 03/25/2017 SUBJECTIVE: The patient is hospital day #3 status post fall at rehab facility in which she sustained a significant laceration to her right lower extremity, went to the operating room the following day for irrigation and debridement. The patient was also admitted for fecal impaction. Though yesterday while she was on the telemetry unit, it was noted that the patient appeared to have aspirated at [facility] time she was moved to the critical care unit and subsequently intubated and placed on full mechani elyssa ventilatory support. The patient required Levophed for pressure support and overnight there were no reported issues. This morning, the patient is on light sedation, she is following commands, her eyes are open. The patient has good dental insurance coordinator strength bilaterally. Moves all 4 extremities to command. OBJECTIVE: VITAL SIGNS: This morning, temperature is 98.2, heart rate 64, blood pressure 119/57, respiratory ra te 24, and oxygen saturation is 98%. HEENT: Unchanged. LUNGS: Again, show patchy rhonchi. HEART: Regular rate and rhythm. ABDOMEN: Soft, flat, and nontender with hypoactive bowel sounds. EXTREMITIES: Show capillary refill less than 3 seconds. Pulses are 2+, again the patient moves all 4 extremities to commands. LABORATORY DATA: White blood cell count 8.5, hemoglobin 13.0, hematocrit 40.4, platelets 111. Sodiu m 140, potassium 3.6, chloride 110, CO2 24, BUN 35, creatinine 0.72, glucose 147, magnesium 2.3, phos phorus 1.3. RADIOGRAPHIC FINDINGS: Chest x-ray shows patchy infiltrate in the medial left lung base, otherwise l chandu and tubes are in place. ASSESSMENT AND PLAN: 1. Acute respiratory failure requiring ventilatory support, improved. 2. Cardiovascular collapse, still requiring vasopressor. 3. Methicillin-resistant Staphylococcus aureus bacteremia, vancomycin to be dosed by pharmacy and In fectious Disease consult. Plan will be to continue ventilatory support and reevaluate the patient in the morning. The patient has markedly improved from yesterday, but we will see how she does over the next 48-72 hours.
[2017-03-25] MEDS: Norepinephrine 8 MG/250 ML BAG IVPB PRN (19:02)
[2017-03-25] MEDS: Leflunomide 10 mg Tablet PO SCH (21:10)
[2017-03-25] MEDS: Spironolactone 25 MG TAB PO SCH (21:11)
--- NOTE | 2017-03-25 21:42 | PRG ---
DATE OF SERVICE: 03/25/2017 SUBJECTIVE: The patient has hospital day #3 status post fall and postop day #2, status post leg lace ration repair. Patient was intubated yesterday for acute respiratory failure. She remains on modera te doses of vasopressors. Ventilator settings are minimal. The patient is arousable and will follow commands. OBJECTIVE: VITAL SIGNS: Reviewed and stable. GENERAL: Urinary output 20-25 mL per hour on average. Resting in bed in no acute distress, intubate d and sedated. LUNGS: Symmetric chest rise. EXTREMITIES: Moves all extremities x4 per report. ASSESSMENT AND PLAN: As documented in the daily progress note. Continue to monitor. Continue care as ordered. Await family from out of state for more clear delineation of the patient's advanced dire ctives and wishes.
[2017-03-26] MEDS: Sodium Chloride 0.9% 1,000 ML IV SCH ×2 (00:02→08:36)
[2017-03-26 00:29] LABS: Vancomycin, Trough 27.3 ug/mL
[2017-03-26] MEDS: Norepinephrine 8 MG/250 ML BAG IVPB PRN (03:33)
[2017-03-26] MEDS ORDERED: Vancomycin HCl 50 MG, Sodium Chloride 0.9% 10 ML in Syringe 1 ML CATH PRN (04:17)
[2017-03-26] MEDS: Hydrocortisone Sod Succ/PF 100 mg/2 ml Vial IVP SCH ×2 (05:08→11:32)
[2017-03-26 05:47] LABS: #Lymphocytes 0.3 thou/uL (1.20-3.40); #Monocytes 0.9 thou/uL (0.11-0.59); #Neutrophils 9.5 thou/uL (1.40-6.50); %Basophils 0.1 % (0.0-1.0); %Eosinophils 0.1 % (0.0-10.0); %Lymphocytes 2.7 % (21.0-51.0); %Monocytes 8.1 % (0.0-10.0); Hemoglobin 12.9 g/dL (12.0-16.0); Mean Corpuscular HGB CONC 31.5 g/dL (32.0-36.0); Mean Corpuscular Hemoglobin 31.8 pg (27.0-31.0); Platelet Count 97 thou/uL (130-400); RBC Distribution Width 16.4 % (11.5-14.5); Red Blood Cell (RBC) Count 4.05 mill/uL (4.20-5.40); White Blood Cell (WBC) Count 10.7 thou/uL (4.8-10.8)
[2017-03-26 06:45] LABS: Anion Gap 11 mmol/L (10-20); BUN (Urea Nitrogen) 31 mg/dL (9.8-20.1); Calc. Creatinine Clearance 107 mL/min (70-130); Calcium 7.8 mg/dL (7.8-10.44); Carbon Dioxide 23 mmol/L (23-31); Chloride 114 mmol/L (98-107); Estimated GFR-MDRD Greater than 90; Glucose 122 mg/dL (83-110); Magnesium 1.9 mg/dL (1.6-2.6); Phosphorus 2.1 mg/dL (2.3-4.7); Potassium 4.1 mmol/L (3.5-5.1); Sodium 144 mmol/L (136-145)
[2017-03-26] MEDS: Famotidine/PF 20 mg/2ml Vial SLOW IVP SCH ×2 (08:33→21:19)
[2017-03-26] MEDS: Nebivolol HCl 5 MG TAB PO SCH (08:33)
[2017-03-26] MEDS: Enoxaparin Sodium 30 MG/0.3 ML SYRINGE SC SCH (08:34)
[2017-03-26] MEDS: Cholestyramine/Aspartame 4 gm Packet PO SCH (08:37)
[2017-03-26] MEDS: Polyethylene Glycol 3350 17 GM Packet PO SCH (08:38)
[2017-03-26] MEDS: Senokot S 8.6-50 MG TAB PO SCH ×2 (08:38→21:19)
[2017-03-26] MEDS ORDERED: Furosemide 40 MG/4 ML VIAL SLOW IVP SCH (09:00)
--- NOTE | 2017-03-26 12:31 | PRG ---
CRITICAL CARE NOTE DATE OF SERVICE: 03/26/2017 SUBJECTIVE: Ms. Peraza is sedated on mechanical ventilator support. Overnight, she has required deescalating doses of norepinephrine currently at 10 mcg per minute. Off sedation, she moves all extremities and follows commands. [place] coma scale therefore is at E3, M6, V1T. OBJECTIVE: VITAL SIGNS: Current includes blood pressure 102/64, pulse 66 and respiratory rate 15. Maximum temp erature in the last 24 hours is 98.1 degrees Fahrenheit and oxygen saturation is 100% on FiO2 of 21%. HEENT: Reveals normocephalic and atraumatic. Pupils are equal, round and reactive to light bilatera lly. She has bilateral scleral edema present. No jugular venous distention noted. HEART: Reveals regular rate and rhythm. No murmurs or gallops auscultated. CHEST: Clear to auscultation bilaterally. Breathing is regular and unlabored. ABDOMEN: Soft, nontender and nondistended. EXTREMITIES: Reveals 2+ radial and pedal pulses bilaterally. She has bilateral ankle edema present. All dressings in the upper and lower extremities remained clean and dry. NEUROLOGIC: Reveals no focal deficits present. LABORATORY DATA: Includes a CBC with 10,700 white blood cells, hemoglobin 12.9, hematocrit is 40.9 a nd platelet count is 97,000. Metabolic profile: Sodium is 144, potassium is 4.1, chloride is 114, b icarbonate 23, BUN 31, creatinine 0.62, glucose 122, magnesium 1.9 and phosphorus is 2.1. IMPRESSION: 1. Coag-negative staph bacteremia. 2. Acute respiratory failure, improving. 3. Acute septic shock, improving. 4. Acute hypomagnesemia. 5. Acute hypophosphatemia. PLAN: 1. Continue IV antibiotics. 2. Continue ventilatory support and wean vent as tolerated. 3. Wean vasopressor as blood pressure dictates. 4. Correct abnormal electrolytes. Above findings and plan discussed with the patient's family. They indicate understanding of the info rmation given. The patient will be extubated once weaning parameters have been met. Continue with physical and occupational therapy. Total critical care time including a family conference at 55 minutes.
[2017-03-26 12:51] LABS: Vancomycin, Random 19.4 ug/mL (See Comment)
--- NOTE | 2017-03-26 13:19 | PRG ---
DATE OF SERVICE: 03/25/2017 SERVICE: Pulmonary Medicine. INTERVAL HISTORY: The patient has done well overnight. She is on much less Levophed. She denies an y current shortness breath or chest discomfort. She is resting comfortably on mechanical ventilation , awake and appropriate. She answers all questions. There were no significant overnight events othe rwise. PHYSICAL EXAMINATION: VITAL SIGNS: Afebrile, pulse 63, blood pressure 108/53, respirations 17, saturation 99% on 24% FiO2. GENERAL: Patient is awake, but a little sleepy on some sedation. HEENT: Normocephalic, atraumatic. Sclerae are white, conjunctivae pink. Oral and nasal mucosa is m oist without lesions. LUNGS: Excellent air entry. There is no prolonged expiratory phase or wheezing. HEART: Normal rate and regular. ABDOMEN: Soft, nontender, nondistended. Bowel sounds are positive. MUSCULOSKELETAL: No cyanosis or clubbing. She has got diffuse 2+ edema throughout. GENITOURINARY: Hernandez catheter in place. NEUROLOGIC: Grossly nonfocal. LABORATORY DATA: WBC 8.5, hemoglobin 13.0, platelets 111,000. Basic metabolic profile was essential ly unremarkable with BUN of 31. Creatinine 0.62, phosphorus 2.1 and improving, magnesium 1.9. Two o ut of two blood cultures are positive for coag negative staph. IMAGING: Chest x-ray demonstrates parenchymal opacity and consolidation of the right medial lung bas e. Patchy density in the right lung base. Interval placement of nasogastric tube. Endotracheal tub e is in decent position. Improvement in pulmonary edema findings. ASSESSMENT: 1. Acute hypoxic and hypercapnic respiratory failure. 2. Septic shock, resolving. 3. Bacteremia secondary to coag negative Staph with [id number] in place. 4. History of polymyositis. PLAN: The patient will remain on mechanical ventilation for the next 24 hours. She is clearing her sepsis profile. Once she clears this completely, we will restart diuresing her to try to get her anna marie k to euvolemia. In the morning, she will be placed on spontaneous breathing trial and extubation may be considered. I know end of life discussions are happening between primary service and us. I do t hink the patient is quite debilitated in lax function and may be very well at the end of her life, bu t I think she can recover from this acute infectious process. CRITICAL CARE TIME: 30 minutes.
--- NOTE | 2017-03-26 13:27 | PRG ---
DATE OF SERVICE: 03/26/2017 SERVICE: Pulmonary Medicine INTERVAL HISTORY: Overnight, the patient was weaned off of Levophed. There were no acute events. O therwise, she is returning to her usual state of health. She is awake and alert on mechanical ventil ation. She really does not require any sedation. Her pain is under good control, and does not have any significant other abnormalities. PHYSICAL EXAMINATION: VITAL SIGNS: Afebrile. Pulse 68, blood pressure 101/69, respirations 17, saturation 95% on 21% FiO2 and a PEEP of 5. GENERAL: The patient is awake and alert. She is in no apparent distress. LUNGS: Decent air entry. There are crackles present bilaterally with some rhonchi. They change wit h cough. No prolonged expiratory phase or wheezing. HEART: Normal rate, regular. ABDOMEN: Soft, nontender, nondistended. Bowel sounds are positive. MUSCULOSKELETAL: No cyanosis or clubbing. There is diffuse 2-3+ pitting in the bilateral lower extr emities with ecchymoses throughout the upper and lower extremities. GENITOURINARY: Hernandez catheter in place. NEUROLOGIC: Grossly nonfocal. LABORATORY DATA: WBC 10.7, hemoglobin 12.9, platelets 97,000. BNP 331 which is slightly above where we were 2 days ago. Urinalysis is unremarkable. Blood cultures x2 are growing coag negative staph. ASSESSMENT: 1. Acute hypoxic respiratory failure, resolved. 2. Septic shock. 3. Bacteremia secondary to coag negative Staph with indwelling Xavi catheter. 4. Polymyositis. PLAN: Now that she has cleared her infectious profile and off of Levophed, we will start initiating her on a couple small doses of Lasix. We will follow laboratories throughout the rest of this hospit al stay. Her sodiums are trending upward ever so slightly and so we will also need to give her a sophie ch of free water. We will put her on a spontaneous breathing trial and if she meets criteria, extuba tion will be considered. Pulmonary Critical Care will continue to follow while she remains in this l ocation.
[2017-03-26] MEDS: Vancomycin HCl 1 GM in Premix Bag 1 BAG IVPB SCH (13:30)
[2017-03-26] MEDS: Dextrose 5% in Water 1,000 ML IV SCH (13:34)
[2017-03-26] MEDS ORDERED: Acetaminophen 1,000 MG in Premix Bag 1 BAG IVPB PRN (14:31)
[2017-03-26] MEDS: Leflunomide 10 mg Tablet PO SCH (20:53)
[2017-03-26] MEDS: Spironolactone 25 MG TAB PO SCH (21:19)
[2017-03-26] MEDS: Norepinephrine 8 MG in Sodium Chloride 0.9% 250 ML 242 ML IVPB SCH (23:28)
[2017-03-27] MEDS ORDERED: Furosemide 20 MG/2 ML VIAL SLOW IVP SCH (06:00)
[2017-03-27 06:04] LABS: Anion Gap 11 mmol/L (10-20); BUN (Urea Nitrogen) 32 mg/dL (9.8-20.1); Calc. Creatinine Clearance 102 mL/min (70-130); Calcium 7.9 mg/dL (7.8-10.44); Carbon Dioxide 23 mmol/L (23-31); Chloride 111 mmol/L (98-107); Estimated GFR-MDRD 90; Glucose 140 mg/dL (83-110); Magnesium 2.1 mg/dL (1.6-2.6); Phosphorus 1.6 mg/dL (2.3-4.7); Potassium 4.1 mmol/L (3.5-5.1); Sodium 141 mmol/L (136-145)
[2017-03-27 06:14] LABS: Band 13 % (5-11); Hemoglobin 12.8 g/dL (12.0-16.0); Lymphocytes 4 % (21-51); MDiff Complete? YES; Mean Corpuscular HGB CONC 32.2 g/dL (32.0-36.0); Mean Corpuscular Hemoglobin 32.4 pg (27.0-31.0); Mean Platelet Volume 8.4 fL (7.4-10.4); Monocytes 9 % (0-10); Neutrophil 74 % (42-75); PLT Morphology Comment Appears Decreased; Platelet Count 68 thou/uL (130-400); RBC Distribution Width 16.3 % (11.5-14.5); Red Blood Cell (RBC) Count 3.94 mill/uL (4.20-5.40); White Blood Cell (WBC) Count 10.6 thou/uL (4.8-10.8)
[2017-03-27] MEDS: Famotidine/PF 20 mg/2ml Vial SLOW IVP SCH ×2 (08:30→21:02)
[2017-03-27] MEDS: Cholestyramine/Aspartame 4 gm Packet PO SCH (08:30)
[2017-03-27] MEDS: Polyethylene Glycol 3350 17 GM Packet PO SCH (08:30)
[2017-03-27] MEDS ORDERED: Sodium Phosphate 30 MMOL in Sodium Chloride 0.9% 250 ML 250 ML IVPB SCH (08:30)
[2017-03-27] MEDS: Senokot S 8.6-50 MG TAB PO SCH ×2 (08:31→21:03)
[2017-03-27] MEDS: Nebivolol HCl 5 MG TAB PO SCH (08:31)
[2017-03-27] MEDS: Dextrose 5% in Water 1,000 ML IV SCH (08:32)
[2017-03-27] MEDS: Enoxaparin Sodium 30 MG/0.3 ML SYRINGE SC SCH (08:33)
--- NOTE | 2017-03-27 12:57 | PRG ---
DATE OF SERVICE: 03/27/2017 SERVICE: Pulmonary Medicine INTERVAL HISTORY: The patient is doing really well from a respiratory standpoint. She is on minimal FiO2. She got started on Precedex yesterday evening to minimize any significant sedating things jim t would interfere with our ability to extubate her. She is cool, calm and collected this morning. S he will be placed on spontaneous breathing trial later. PHYSICAL EXAMINATION: VITAL SIGNS: Afebrile, pulse 66, blood pressure 88/58, respirations 32, saturation 100% on 27% FiO2 and a PEEP of 5. GENERAL: The patient is awake and alert. She is in no apparent distress. She is breathing comforta yaw on mechanical ventilation. HEART: Normal rate, regular. ABDOMEN: Soft, nontender, nondistended. Bowel sounds are positive. MUSCULOSKELETAL: No cyanosis or clubbing. There is diffuse 2+ pitting throughout with ecchymoses. GENITOURINARY: Hernandez catheter in place. NEUROLOGIC: Grossly nonfocal. LABORATORY DATA: WBC 10.6, hemoglobin 12.8, platelets 68,000. Basic metabolic profile is completely unremarkable. Phosphorus is 1.6, magnesium 2.1. BNP 331 and gently up trending. The port culture is growing mead-resistant Staph epidermidis, but it is sensitive to vancomycin which the patient is cu rrently on. Influenza A and B is unremarkable. ASSESSMENT: 1. Acute hypoxic respiratory failure, resolved. 2. Septic shock, improving. 3. Bacteremia secondary to coag negative Staph with indwelling Xavi catheter. 4. Polymyositis. PLAN: We will replace her phosphorus. A spontaneous breathing trial will be performed. If she meet s criteria, extubation will be considered. She did go back on a touch of Levophed last night, but I do not think this prevents us from extubating her if needed. Otherwise, supportive care including an tibiotics, and gentle free water will be continued. We will give her a dose of Lasix on a daily basi s. Critical care time: 30 minutes.
[2017-03-27] MEDS: Vancomycin HCl 1 GM in Premix Bag 1 BAG IVPB SCH (13:05)
[2017-03-27] MEDS: Furosemide 40 MG/4 ML VIAL SLOW IVP SCH (13:39)
--- NOTE | 2017-03-27 14:43 | PRG ---
DATE OF SERVICE: 03/27/2017 SUBJECTIVE: Ms. Peraza remains sedated on mechanical ventilatory support. She is requiring norepin ephrine at 10 mcg per minute to support arterial pressure of 65. She awakens to voice, moves all extremities, and follows commands. She had a bowel movement yesterda y. PHYSICAL EXAMINATION: VITAL SIGNS: Currently includes blood pressure 95/58, pulse 67 and irregular, respiratory rate is 27 , maximum temperature in the last 24 hours is 98.1 degrees Fahrenheit, oxygen saturation is 100% on F IO2 of 30%. HEENT: Reveals normocephalic and atraumatic. She has decreasing bilateral sclerae edema. Pupils ar e otherwise equally round and reactive to light and accommodation. She has no jugular venous distention noted. HEART: Reveals irregular rate and irregular rhythm. LUNGS: Clear to auscultation bilaterally. Breathing is unlabored. ABDOMEN: Soft, nontender, nondistended. Bowel sounds in all four quadrants appear normoactive. EXTREMITIES: Reveals 2+ radial and pedal pulses bilaterally. She has a left greater than right bila teral ankle edema present. NEUROLOGIC: Reveals no focal deficits present. PERTINENT LABORATORY FINDINGS: Today includes CBC with stable white blood cell count of 10,600, hemo globin and hematocrit remained stable at 12.8 and 39.6 respectively. Platelet count is 68,000. [place] bolic profile: Sodium 141, potassium is 4.1, chloride is 111, bicarbonate 23, BUN 32, creatinine 0.6 5, glucose is 140, magnesium is 2.1, and phosphorus is 1.6. IMPRESSION: 1. Acute respiratory failure. 2. Acute hypophosphatemia. 3. Staphylococcus epidermidis bacteremia. PLAN: 1. Continue IV antibiotics. 2. Continue ventilatory support, wean mechanical ventilation to extubate the patient once criteria i s met. 3. Correct abnormal electrolytes. 4. We discussed with Infectious Disease and blood cultures will be repeated and if still positive fo r Staph epidermidis, we will proceed to remove the Port-A-Cath. Above findings has been discussed with the patient. She nodded and affirmation. TOTAL CRITICAL CARE TIME: 40 minutes.
[2017-03-27 15:04] VITALS: BMI 27.3
[2017-03-27] MEDS: Norepinephrine 8 MG in Sodium Chloride 0.9% 250 ML 242 ML IVPB SCH (16:50)
[2017-03-27] MEDS: Leflunomide 10 mg Tablet PO SCH (21:03)
[2017-03-27] MEDS: Spironolactone 25 MG TAB PO SCH (21:03)
[2017-03-28] MEDS ORDERED: Norepinephrine 8 MG/0.9% NS 8 MG in Premix Bag 1 BAG IVPB SCH (05:00)
[2017-03-28 05:27] LABS: Anion Gap 12 mmol/L (10-20); BUN (Urea Nitrogen) 29 mg/dL (9.8-20.1); Band 17 % (5-11); Calc. Creatinine Clearance 0 mL/min (70-130); Calcium 7.7 mg/dL (7.8-10.44); Carbon Dioxide 22 mmol/L (23-31); Chloride 110 mmol/L (98-107); Estimated GFR-MDRD 85; Glucose 170 mg/dL (83-110); Hemoglobin 12.9 g/dL (12.0-16.0); Lymphocytes 5 % (21-51); MDiff Complete? YES; Magnesium 1.7 mg/dL (1.6-2.6); Mean Corpuscular HGB CONC 32.7 g/dL (32.0-36.0); Mean Corpuscular Hemoglobin 32.1 pg (27.0-31.0); Mean Corpuscular Volume 98.1 fl (81.0-99.0); Mean Platelet Volume 8.4 fL (7.4-10.4); Monocytes 8 % (0-10); Neutrophil 70 % (42-75); Nucleated RBC 2 % (0); PLT Morphology Comment Appears Decreased; Platelet Count 65 thou/uL (130-400); Potassium 3.5 mmol/L (3.5-5.1); RBC Distribution Width 15.8 % (11.5-14.5); Red Blood Cell (RBC) Count 4.03 mill/uL (4.20-5.40); Sodium 140 mmol/L (136-145); White Blood Cell (WBC) Count 11.9 thou/uL (4.8-10.8)
[2017-03-28] MEDS: Furosemide 40 MG/4 ML VIAL SLOW IVP SCH ×2 (05:27→16:28)
[2017-03-28 05:39] LABS: Phosphorus 1.9 mg/dL (2.3-4.7)
[2017-03-28] MEDS ORDERED: Magnesium Sulfate 4 GM, Potassium Phosphate 30 MMOL in Sodium Chloride 0.9% 250 ML 250 ML IVPB SCH (06:45)
[2017-03-28] MEDS ORDERED: Potassium Phosphate 30 MMOL in Sodium Chloride 0.9% 500 ML IVPB SCH (06:45)
[2017-03-28] MEDS: Nebivolol HCl 5 MG TAB PO SCH (11:31)
[2017-03-28] MEDS: Enoxaparin Sodium 30 MG/0.3 ML SYRINGE SC SCH (11:31)
[2017-03-28] MEDS: Cholestyramine/Aspartame 4 gm Packet PO SCH (11:31)
[2017-03-28] MEDS: Senokot S 8.6-50 MG TAB PO SCH ×2 (11:31→21:03)
[2017-03-28] MEDS: Polyethylene Glycol 3350 17 GM Packet PO SCH (11:32)
[2017-03-28] MEDS: Famotidine/PF 20 mg/2ml Vial SLOW IVP SCH ×2 (11:34→21:02)
--- NOTE | 2017-03-28 12:21 | RAD ---
KUB: Date: 03/28/17 COMPARISON: None. HISTORY: Dobbhoff tube placement. FINDINGS: Three images are provided. Imaged performed at 1034 hours demonstrates a Dobbhoff tube terminating in the left upper quadrant, potentially within the gastric body. Additional image performed at 1040 mika rs demonstrates Dobbhoff tube curling in the left upper quadrant, presumably within the stomach. A th ird image was performed at 1050 hours, demonstrating the Dobbhoff tube to take an abnormal course ove rlying the right lung base and right upper quadrant of the abdomen. The course is not consistent with location and bowel, and is uncertain in location, potentially within lung and a very low costophreni c angle. IMPRESSION: Dobbhoff tube images as above. The final image performed at 1050 hours demonstrates Dobbhoff taking a course inconsistent with a location within the bowel. This was discussed with Dr. Luna at approximately 1100 hours on 03/28/17. This tube was subsequently removed. CODE CR. POS: NICO
--- NOTE | 2017-03-28 12:21 | RAD ---
UPRIGHT KUB: Date: 03-28-17 Time: 11:13 a.m. History: Evaluate Dobbhoff feeding tube placement. FINDINGS: Dobbhoff feeding tube extends into left upper quadrant and curls to the right of midline, terminating near cholecystectomy clip, suggesting a location within the proximal duodenum. There is dense opacit y in the left lung base. There is a CT injectable port-a-cath on the left. Transvenous pacing device is present. There is an incompletely evaluated T12 fracture. IMPRESSION: Dobbhoff feeding tube in place as detailed above. POS: NICO
--- NOTE | 2017-03-28 12:28 | PRG ---
DATE OF SERVICE: 03/28/2017 SERVICE: Pulmonary Medicine. INTERVAL HISTORY: The patient had another spontaneous breathing trial this morning. She was struggl ing on it, but her shallow breathing index was low. As such, a decision was made to pull the tube. After the tube was pulled, she continues to have excessive accessory muscle use. She looks a little bit uncomfortable, but she is getting by for time being. Otherwise, there has been no interval mcduffie e to her condition. There are no overnight events. PHYSICAL EXAMINATION: VITAL SIGNS: Afebrile, pulse 74, blood pressure 136/77, respirations 18, saturation 96% on 4 liters nasal cannula. GENERAL: The patient is awake and remains encephalopathic. She does follow some simple commands. S he is in mild respiratory distress. HEART: Normal rate, regular. ABDOMEN: Soft, nontender, nondistended. Bowel sounds are positive. MUSCULOSKELETAL: No cyanosis or clubbing. There is diffuse pitting in the bilateral lower extremiti es. NEUROLOGIC: Grossly nonfocal. LABORATORY DATA: WBC 11.9, hemoglobin 12.9, platelets 65,000 and trending downward. Basic metabolic profile is unremarkable. Calcium is 7.7, phosphorus 1.9, magnesium 1.7. Staph epidermidis is growi ng 2/2 blood cultures. Repeat blood cultures are negative to date. Influenza A and B are unremarkab le. ASSESSMENT: 1. Acute hypoxic respiratory failure, resolved. 2. Septic shock, resolving. 3. Bacteremia secondary to coag negative Staph with indwelling port catheter. 4. Polymyositis. 5. Deconditioning, horrendous. PLAN: We cannot keep the patient from developing respiratory failure once again. Yesterday, after f chau discussions, she was turned into DNI/DNR. We will continue our efforts and getting her close t o the euvolemia, but I think that going slowly would be best in her case. She may require BiPAP on a nd off. She will certainly need to remain in the ICU for the time being. We will focus efforts on m obilizing her if she tolerates.
[2017-03-28 12:50] LABS: Vancomycin, Trough 24.1 ug/mL
[2017-03-28] MEDS: Albumin 25% 25 GM/100 ML BOT IVPB SCH ×2 (13:41→21:03)
[2017-03-28] MEDS ORDERED: Vancomycin HCl 750 MG in Sodium Chloride 0.9% 250 ML 250 ML IVPB SCH (14:00)
[2017-03-28] MEDS: Vancomycin HCl 1 GM in Premix Bag 1 BAG IVPB SCH (14:33)
[2017-03-28 15:42] VITALS: BP 125/73
--- NOTE | 2017-03-28 18:52 | PRG ---
DATE OF SERVICE: 03/28/2017 HISTORY: Ms. Peraza is awake. She has kind of labored breathing, but she wakes up and she is orien kristi and follows commands. She denies any chest pain or abdominal pain. OBJECTIVE: VITAL SIGNS: T-max is 98.6. BP 120/60, heart rate 85, and respiratory rate 26, and O2 sat 96%. GENERAL: Patient has quite extensive bruising. She has an accessed left port in the midline access. LUNGS: With somewhat coarse breath sounds. HEART: S1, S2, irregular rate. ABDOMEN: Soft, not distended. She is able to move extremities. LABORATORY DATA: White cell count 11.9, hemoglobin 12.9, platelets 65,000, 7% neutrophils, and 17% b ands. Sodium 140, creatinine 0.68 and two extra sets grown yesterday are still pending. This one se t from the central port and one from peripheral IV access. The patient had an abdomen x-ray done thi s morning and this is for positioning of the Dobbhoff tube. ASSESSMENT AND DISCUSSION: Polymyositis, undergoing treatment IVIG. Bradycardia, which required pac emaker placement, laceration from fall and respiratory insufficiency and pulmonary edema and bacterem ia, and coagulase negative staph. The patient is receiving treatment with sliding scale. Conversati ons going on with family regarding palliative care and repeat blood cultures are pending at this time .
--- NOTE | 2017-03-28 19:43 | EKG ---
Test Reason : Blood Pressure : / mmHG Vent. Rate : 067 BPM Atrial Rate : 067 BPM P-R Int : 180 ms QRS Dur : 138 ms QT Int : 478 ms P-R-T Axes : 079 -75 084 degrees QTc Int : 505 ms Atrial-sensed ventricular-paced rhythm Abnormal ECG When compared with ECG of 24-MAR-2017 11:18, (Unconfirmed) Premature ventricular complexes are no longer Present Vent. rate has decreased BY 33 BPM Confirmed by KASSY GRANADOS (2) on 03/28/2017 7:43:03 PM Referred By: ROMMEL Confirmed By:KASSY GRANADOS
[2017-03-28] MEDS: Spironolactone 25 MG TAB PO SCH (21:03)
[2017-03-28] MEDS: Leflunomide 10 mg Tablet PO SCH (21:51)
[2017-03-29 05:19] LABS: Anion Gap 7 mmol/L (10-20); BUN (Urea Nitrogen) 30 mg/dL (9.8-20.1); Calc. Creatinine Clearance 0 mL/min (70-130); Calcium 8.1 mg/dL (7.8-10.44); Carbon Dioxide 27 mmol/L (23-31); Chloride 112 mmol/L (98-107); Estimated GFR-MDRD 87; Glucose 165 mg/dL (83-110); Magnesium 2.4 mg/dL (1.6-2.6); Phosphorus 2.7 mg/dL (2.3-4.7); Potassium 4.4 mmol/L (3.5-5.1); Sodium 142 mmol/L (136-145)
[2017-03-29 06:17] LABS: Band 10 % (5-11); Eosinophils 1 % (0-10); Hemoglobin 11.1 g/dL (12.0-16.0); Lymphocytes 9 % (21-51); MDiff Complete? YES; Macrocytosis MODERATE=16-30 cells (100X) (0-5/hpf); Mean Corpuscular HGB CONC 32.7 g/dL (32.0-36.0); Mean Corpuscular Hemoglobin 32.7 pg (27.0-31.0); Mean Platelet Volume 9.3 fL (7.4-10.4); Monocytes 2 % (0-10); Neutrophil 78 % (42-75); PLT Morphology Comment Appears Decreased; Platelet Count 37 thou/uL (130-400); RBC Distribution Width 16.1 % (11.5-14.5); Red Blood Cell (RBC) Count 3.39 mill/uL (4.20-5.40); White Blood Cell (WBC) Count 6.2 thou/uL (4.8-10.8)
[2017-03-29] MEDS: Polyethylene Glycol 3350 17 GM Packet PO SCH (10:57)
[2017-03-29] MEDS: Famotidine/PF 20 mg/2ml Vial SLOW IVP SCH (10:57)
[2017-03-29] MEDS: Senokot S 8.6-50 MG TAB PO SCH (10:57)
[2017-03-29] MEDS: Albumin 25% 25 GM/100 ML BOT IVPB SCH (10:57)
[2017-03-29] MEDS: Enoxaparin Sodium 30 MG/0.3 ML SYRINGE SC SCH (10:57)
[2017-03-29] MEDS: Cholestyramine/Aspartame 4 gm Packet PO SCH (10:57)
[2017-03-29] MEDS ORDERED: Lorazepam 2 MG/ML VIAL SLOW IVP PRN (11:02)
[2017-03-29] MEDS: Morphine 4 MG/ML VIAL IV PRN ×3 (11:07→16:05)
[2017-03-29 11:46] VITALS: TEMP 97.4
--- NOTE | 2017-03-29 13:36 | PRG ---
DATE OF SERVICE: 03/29/2017 SUBJECTIVE: Ms. Miguel was placed on BiPAP overnight due to increasing respiratory difficulties. She seems to be awake, moves all extremities and follows commands. Her brothers, Jax and Eleanor, were at bedside during this visit. The BiPAP was removed and the pa tient was placed on 3 liters by nasal cannula oxygen. OBJECTIVE: VITAL SIGNS: Includes blood pressure 105/72, pulse 86, respiratory rate 34, maximum temperature in t he last 24 hours is 98.4 degrees Fahrenheit, oxygen saturation is 96%. HEENT: Reveals decreasing bilateral sclerae edema. HEART: Reveals regular rate and rhythm. No murmurs or gallops auscultated. CHEST: Lungs clear to auscultation bilaterally. Breathing is regular and unlabored. ABDOMEN: Soft, nontender, and nondistended. EXTREMITIES: Reveals decreasing bilateral lower extremities edema. Both feet are warm to touch. NEUROLOGIC: Reveals no focal deficits present. PERTINENT LABORATORY DATA: Includes CBC with 6200 white blood cells, hemoglobin 11.1, hematocrit is 34.0, platelet count is 37,000. IMPRESSION: 1. Acute pulmonary insufficiency. 2. Polymyositis, patient is quite debilitated. 3. Worsening acute thrombocytopenia. PLAN: I had bedside family conference with the patient and two brothers. The patient clearly expres sed her wishes to proceed with comfort care measures only and hospice knowing that this will certainl y lead to her demise. She adamantly refused any plans for repeat mechanical ventilatory support. Th e patient's nurse was at bedside during this conference. The service will oblige this patient with h er wishes to proceed with comfort care measures. Palliative care has been invited and hospice care will be initiated accordingly. I answered all thei r questions. The patient's brothers expressed deep gratitude for the care of the patient has receive d during this hospitalization.
--- NOTE | 2017-03-29 14:29 | PRG ---
DATE OF SERVICE: 03/29/2017 SERVICE: Pulmonary Medicine. INTERVAL HISTORY: The patient is doing poorly from a respiratory standpoint. She demonstrates extra ordinary weakness. She got put on BiPAP. She is on minimal settings, but this was enough to improve the way that she was breathing. She does not have a lot of lung disease right now. The mechanics o f her lungs are just fine. She truthfully just simply too weak in order to continue to breathe on. Without tracheostomy moving forward, she is going to have a difficult time. I discussed this with so me family members this morning. They are trying to decide whether or not transitioning over to comfo rt care only. Ultimately, after having conversations with myself, Dr. Luna, and palliative care, th ey have recognized that she would not want to live in a condition that she has been in over the past 6 months. As such, we are going to be transitioning over to comfort care only. Otherwise, there has been no interval change to her condition. PHYSICAL EXAMINATION: VITAL SIGNS: Afebrile, pulse 63, blood pressure 105/72, respirations 34, saturation 98% on 27% FiO2. GENERAL: Patient is somnolent. She is breathing comfortably, but otherwise in no apparent distress. LUNGS: Decent air entry. There is no prolonged expiratory phase. Dependent crackles are present. HEART: Normal rate, regular. ABDOMEN: Soft, nontender, nondistended. Bowel sounds are positive. MUSCULOSKELETAL: No cyanosis or clubbing. There is diffuse 2+ pitting throughout. GENITOURINARY: Hernandez catheter in place. NEUROLOGIC: Grossly nonfocal. LABORATORY DATA: WBC 6.2, hemoglobin 11.1, platelets 78,000. Band count is dropping to 10%. Two ou t of two blood cultures are growing Staph epidermidis. Repeat blood cultures are negative. ASSESSMENT: 1. Acute hypoxic respiratory failure. 2. Septic shock, resolved. 3. Bacteremia secondary to coag negative Staph with indwelling [id number]. 4. Polymyositis. 5. Deconditioning, horrendous. PLAN: At this time, based on the family's wishes, what the patient would want for herself, will be t ransitioning over to comfort care only. I do think this is perfectly reasonable given the severity o f her comorbidities and deconditioning. They have suggested to me that even at her baseline, she aristeo cuvea would not be able to participate in a meaningful way with physical therapy. As such, because of this point, she is too weak to breathe, and would require repeat intubation which she would not want. The family has helped us to do what the patient would request and transitioning to comfort measures only. If she continues breathing for a period of time, it is reasonable to transition her to the [facility]. Pulmonary will continue to follow if she remains in this location, however.
--- NOTE | 2017-04-02 12:54 | DIS ---
DATE OF ADMISSION: 03/22/2017 DATE OF DISCHARGE: 03/29/2017 ADMISSION DIAGNOSES: 1. Status post fall from wheelchair. 2. Multiple skin tears. 3. A 17 cm laceration to right lower extremity. 4. Paced heart rhythm. 5. Chronic venous stasis, bilateral lower extremities. 6. Pain secondary to trauma. CONSULTATIONS: Orthopedics, Dr. Price. PROCEDURES: Irrigation and debridement and primary closure of complex laceration to middle right leg . SUMMARY: Patient is a 72-year-old woman, who was recently in the rehab facility locally after having a pacemaker placed. Patient reportedly fell from a wheelchair, sustained a significant laceration t o her right lower extremity. The patient also on examination was noted to have a large stool ball/fe elyssa impaction and was causing her significant issues. The patient was brought to the Emergency Depar tment, evaluated and examined noted to have the above injuries. She will be taken to the operating r oom for her primary closure. Over the next few days, the patient whose baseline was significant for medical problems, slowly decompensated to the point of one morning it appeared that the patient had aspirated. The patient had been noncompliant with nursing instructions and Speech Pathology's i nstructions on her diet. The patient would be subsequently taken to the critical care unit where she underwent intubation. Over the next few days, she was able to be weaned off the ventilator and afte r discussions with the family by Dr. Diaz, Pulmonology and Dr. Luna, who was decided that the pat ient would be best treated with comfort measures. In light of all her severe comorbidities that she would unlikely do well in light of the fact that she would most likely need to undergo tracheostomy a nd probably PEG tube placement, this burden would be significant for an already fragile system. The patient would subsequently be transferred to [facility] for continuation of palliative and comfort measures.
--- NOTE | 2017-04-06 09:56 | PQF ---
KOMAL COLLIER GARY PA-C [id number] CLINICAL DOCUMENTATION CLARIFICATION FORM: POST DISCHARGE Addendum to original discharge summary date: ____ Late entry note date: __ DATE: 04/06/2017 ATTN: Ethan Agarwal PA-C Please exercise your independent, professional judgment in responding to the clarification form. Clinical indicators are provided on the bottom of this form for your review PN 03/29/17 Assessment: #2. Septic shock, resolved #3. Bacteremia secondary to coag negative Staph with indwelling [id number] Is the dx of sepsis related to indwelling [id number]-A-[id number]? Please check appropriate box(s): [ ] Yes, related [ ] No, not related [ ] Other, [X ] Unable to determine Present on Admission (POA): [ ] Yes [ ] No [ X ] Unable to determine For continuity of documentation, please document condition throughout progress notes and discharge summary. Thank You. CLINICAL INDICATORS - SIGNS / SYMPTOMS / LABS RISK FACTORS TREATMENTS: (This form is maintained as a part of the permanent medical record) 2014 [employer] All Rights Reserved [email or web address] [phone] [email or web address]
== END 2017-03-29 16:15 | disposition hospice, inpatient (51) | DRG 870 ==
LOC: ERS 10:37 → ERHOLD 14:25 → 2NO 21:35 → OBSVTOIN 03-24 10:39 → CCU 03-24 10:42
PROVIDERS: ADMIT Surgery; ATTEND Surgery
PROC: 0HDKXZZ Extraction of Right Lower Leg Skin, External Approach (ICD-10-PCS; 2017-03-22)
PROC: 5A1955Z Respiratory Ventilation, Greater than 96 Consecutive Hours (ICD-10-PCS; principal; 2017-03-24)
PROC: 0BH17EZ Insertion of Endotracheal Airway into Trachea, Via Natural or Artificial Opening (ICD-10-PCS; 2017-03-24)
PROC: 0BP1XDZ Removal of Intraluminal Device from Trachea, External Approach (ICD-10-PCS; 2017-03-28)
PROC: 5A09357 Assistance with Respiratory Ventilation, Less than 24 Consecutive Hours, Continuous Positive Airway Pressure (ICD-10-PCS; 2017-03-28)
DX: A41.9 Sepsis, unspecified organism (principal); J96.01 Acute respiratory failure with hypoxia; R65.21 Severe sepsis with septic shock; M33.20 Polymyositis, organ involvement unspecified; E87.2 Acidosis; D69.6 Thrombocytopenia, unspecified; S81.811A Laceration without foreign body, right lower leg, initial encounter; E83.39 Other disorders of phosphorus metabolism; J98.4 Other disorders of lung; E03.9 Hypothyroidism, unspecified; E78.5 Hyperlipidemia, unspecified; I10 Essential (primary) hypertension; I87.8 Other specified disorders of veins; K56.41 Fecal impaction; B95.8 Unspecified staphylococcus as the cause of diseases classified elsewhere; Z51.5 Encounter for palliative care; Z95.0 Presence of cardiac pacemaker; Z88.0 Allergy status to penicillin; Z88.8 Allergy status to other drugs, medicaments and biological substances; Z66 Do not resuscitate; W05.0XXA Fall from non-moving wheelchair, initial encounter; T14.8XXA Other injury of unspecified body region, initial encounter; Y92.238 Other place in hospital as the place of occurrence of the external cause
CPT/HCPCS: 36415; 36416; 51701; 70450; 71045; 71260; 72125; 72170; 74018; 74177; 80048; 80053; 80202; 81003; 81015; 82140; 82247; 82533; 82550; 82553; 82805; 83605; 83690; 83735; 83880; 84100; 84443; 84484; 85025; 87040; 87077; 87149; 87186; 90715; 93005; 93010; 94002; 94003; 94640; 94660; 94760; 96374; A4216; A4353; G0390; G8978-GP-CN; G8979-GP-CK; G8987-GO-CN; G8988-GO-CL; G9159-GN-CK; G9160-GN-CK; J0171; J0690; J0692; J1650; J1720; J1940; J2001; J2060; J2250; J2270; J2704; J3010; J3370; J3475; J7050; J7506; J7620; P9047; S0028